=== PATIENT | male | born 1940 | race Caucasian/White ===

== ENCOUNTER 2018-09-04 09:06 | Emergency (ER) | payer MEDICARE, BC ==
[2018-09-04 09:21] VITALS: TEMP 98.5
--- NOTE | 2018-09-04 10:16 | ED ---
General Adult HPI - General Chief complaint: Recheck/Abnormal Lab/Rx Stated complaint: High blood pressure Time Seen by Provider: 09/04/18 09:20 Source: patient, RN notes reviewed Mode of arrival: ambulatory Limitations: no limitations - History of Present Illness Initial comments: This a 78-year-old male who presents emergency Department complaining of his blood pressure being elevated times one week. Patient states his blood pressure was elevated and has been for the last week. Patient states he is somewhat anxious about this. Patient states he has also had some very slight headaches that are intermittent. Patient thinks her so she was high blood pressure. Patient denies any chest pain patient denies shortness of breath or difficulty breathing. Patient denies any recent fever chills or cough. Patient denies any calf pain or leg swelling. Patient denies any abdominal pain patient denies nausea vomiting diarrhea. Patient denies any near syncopal episodes or any syncopal episodes. Patient states currently he feels pretty good but has a very very slight headache patient denies any blurred vision. - Related Data Home Medications Medication Instructions Recorded Confirmed Aspirin EC [Ecotrin Low Dose] 81 mg PO DAILY 09/04/18 09/04/18 Glucosamine/Chondr Solorzano A Sod [Osteo 1 tab PO DAILY 09/04/18 09/04/18 Bi-Flex Caplet] Metoprolol Tartrate [Lopressor] 50 mg PO HS 09/04/18 09/04/18 Previous Rx's Medication Instructions Recorded Metoprolol Tartrate [Lopressor] 50 mg PO BID #20 tab 09/04/18 Allergies Allergy/AdvReac Type Severity Reaction Status Date / Time No Known Allergies Allergy Verified 09/04/18 09:46 Review of Systems ROS Statement: Those systems with pertinent positive or pertinent negative responses have been documented in the HPI. ROS Other: All systems not noted in ROS Statement are negative. Past Medical History Past Medical History: Hypertension History of Any Multi-Drug Resistant Organisms: None Reported Past Surgical History: Appendectomy, Hernia Repair, Joint Replacement Additional Past Surgical History / Comment(s): foot Past Psychological History: No Psychological Hx Reported Smoking Status: Never smoker Past Alcohol Use History: Rare Past Drug Use History: None Reported General Exam - General Exam Comments Initial Comments: GENERAL: Patient is well-developed and well-nourished. Patient is nontoxic and well- hydrated and is in no acute distress but mildly anxious. ENT: Neck is soft and supple. No significant lymphadenopathy is noted. Oropharynx is clear. Moist mucous membranes. Neck has full range of motion without eliciting any pain. EYES: The sclera were anicteric and conjunctiva were pink and moist. Extraocular movements were intact and pupils were equal round and reactive to light. Eyelids were unremarkable. PULMONARY: Unlabored respirations. Good breath sounds bilaterally. No audible rales rhonchi or wheezing was noted. CARDIOVASCULAR: There is a regular rate and rhythm without any murmurs gallops or rubs. ABDOMEN: Soft and nontender with normal bowel sounds. No palpable organomegaly was noted. There is no palpable pulsatile mass. SKIN: Skin is clear with no lesions or rashes and otherwise unremarkable. NEUROLOGIC: Patient is alert and oriented x3. Cranial nerves II through XII are grossly intact. Motor and sensory are also intact. Normal speech, volume and content. Symmetrical smile. MUSCULOSKELETAL: Normal extremities with adequate strength and full range of motion. No lower extremity swelling or edema. No calf tenderness. LYMPHATICS: No significant lymphadenopathy is noted PSYCHIATRIC: Normal psychiatric evaluation. Limitations: no limitations Course Vital Signs 09/04/18 09/04/18 09/04/18 09:18 10:00 10:30 Temperature 98.5 F Pulse Rate 67 64 64 Respiratory 16 16 18 Rate Blood Pressure 178/111 151/107 127/87 O2 Sat by Pulse 98 95 97 Oximetry 09/04/18 11:00 Temperature Pulse Rate 59 L Respiratory 18 Rate Blood Pressure 148/86 O2 Sat by Pulse 97 Oximetry Medical Decision Making - Medical Decision Making EKG shows normal sinus rhythm at 60 bpm [place] interval 280 QRS is 94 QT interval 414 QTC is 420. Patient's EKG shows no ST segment elevation or depression or T- wave abdomen is noted. - Lab Data Result diagrams: 09/04/18 10:30 09/04/18 10:30 Lab Results 09/04/18 09/04/18 09/04/18 Range/Units 10:30 10:30 10:30 WBC 7.3 (3.8-10.6) k/uL RBC 4.79 (4.30-5.90) m/uL Hgb 13.9 (13.0-17.5) gm/dL Hct 41.5 (39.0-53.0) % MCV 86.6 (80.0-100.0) fL MCH 29.0 (25.0-35.0) pg MCHC 33.5 (31.0-37.0) g/dL RDW 13.4 (11.5-15.5) % Plt Count 298 (150-450) k/uL Neutrophils % 81 % Lymphocytes % 13 % Monocytes % 5 % Eosinophils % 1 % Basophils % 0 % Neutrophils # 5.9 (1.3-7.7) k/uL Lymphocytes # 0.9 L (1.0-4.8) k/uL Monocytes # 0.4 (0-1.0) k/uL Eosinophils # 0.0 (0-0.7) k/uL Basophils # 0.0 (0-0.2) k/uL PT (9.0-12.0) sec INR (<1.2) APTT (22.0-30.0) sec Sodium 141 (137-145) mmol/L Potassium 4.6 (3.5-5.1) mmol/L Chloride 108 H (98-107) mmol/L Carbon Dioxide 26 (22-30) mmol/L Anion Gap 7 mmol/L BUN 20 (9-20) mg/dL Creatinine 0.90 (0.66-1.25) mg/dL Est GFR (CKD-EPI)AfAm >90 (>60 ml/min/1.73 sqM) Est GFR (CKD-EPI)NonAf 81 (>60 ml/min/1.73 sqM) Glucose 110 H (74-99) mg/dL Calcium 9.4 (8.4-10.2) mg/dL Magnesium 2.1 (1.6-2.3) mg/dL Total Bilirubin 0.5 (0.2-1.3) mg/dL AST 21 (17-59) U/L ALT 26 (21-72) U/L Alkaline Phosphatase 83 (38-126) U/L Total Creatine Kinase 134 (55-170) U/L CK-MB (CK-2) 1.7 (0.0-2.4) ng/mL CK-MB (CK-2) Rel Index 1.3 Troponin I <0.012 (0.000-0.034) ng/mL Total Protein 6.5 (6.3-8.2) g/dL Albumin 3.8 (3.5-5.0) g/dL 09/04/18 Range/Units 10:30 WBC (3.8-10.6) k/uL RBC (4.30-5.90) m/uL Hgb (13.0-17.5) gm/dL Hct (39.0-53.0) % MCV (80.0-100.0) fL MCH (25.0-35.0) pg MCHC (31.0-37.0) g/dL RDW (11.5-15.5) % Plt Count (150-450) k/uL Neutrophils % % Lymphocytes % % Monocytes % % Eosinophils % % Basophils % % Neutrophils # (1.3-7.7) k/uL Lymphocytes # (1.0-4.8) k/uL Monocytes # (0-1.0) k/uL Eosinophils # (0-0.7) k/uL Basophils # (0-0.2) k/uL PT 10.2 (9.0-12.0) sec INR 0.9 (<1.2) APTT 24.8 (22.0-30.0) sec Sodium (137-145) mmol/L Potassium (3.5-5.1) mmol/L Chloride (98-107) mmol/L Carbon Dioxide (22-30) mmol/L Anion Gap mmol/L BUN (9-20) mg/dL Creatinine (0.66-1.25) mg/dL Est GFR (CKD-EPI)AfAm (>60 ml/min/1.73 sqM) Est GFR (CKD-EPI)NonAf (>60 ml/min/1.73 sqM) Glucose (74-99) mg/dL Calcium (8.4-10.2) mg/dL Magnesium (1.6-2.3) mg/dL Total Bilirubin (0.2-1.3) mg/dL AST (17-59) U/L ALT (21-72) U/L Alkaline Phosphatase (38-126) U/L Total Creatine Kinase (55-170) U/L CK-MB (CK-2) (0.0-2.4) ng/mL CK-MB (CK-2) Rel Index Troponin I (0.000-0.034) ng/mL Total Protein (6.3-8.2) g/dL Albumin (3.5-5.0) g/dL Disposition Clinical Impression: Hypertension Disposition: HOME SELF-CARE Condition: Good Instructions: Hypertension in the Older Adult (ED) Prescriptions: Metoprolol Tartrate [Lopressor] 50 mg PO BID #20 tab Is patient prescribed a controlled substance at d/c from ED?: No Referrals: Lou Cabrera DO [Primary Care Provider] - 1-2 days Time of Disposition: 11:56
[2018-09-04 10:51] LABS: Basophils % (A) 0 %; Eosinophils % (A) 1 %; HCT 41.5 % (39.0-53.0); HGB 13.9 gm/dL (13.0-17.5); Lymphocytes # (A) 0.9 k/uL (1.0-4.8); Lymphocytes % (A) 13 %; MCHC 33.5 g/dL (31.0-37.0); MCV 86.6 fL (80.0-100.0); Mean Platelet Volume 6.7; Monocytes # (A) 0.4 k/uL (0-1.0); Monocytes % (A) 5 %; Neutrophils # (A) 5.9 k/uL (1.3-7.7); Neutrophils % (A) 81 %; Platelet Count 298 k/uL (150-450); RBC 4.79 m/uL (4.30-5.90); RDW 13.4 % (11.5-15.5); WBC 7.3 k/uL (3.8-10.6)
--- NOTE | 2018-09-04 10:59 | XR ---
EXAMINATION TYPE: XR chest 2V DATE OF EXAM: 09/04/2018 COMPARISON: NONE HISTORY: Hypertension for one week. Chest pain. TECHNIQUE: Frontal and lateral views of the chest are obtained. FINDINGS: There is suspected chronic parenchymal change without worrisome focal air space opacity, p leural effusion, or pneumothorax seen bilaterally. The cardiac silhouette size is within normal limi ts. There is ectatic possible aneurysmal thoracic aorta. This could be better evaluated with CT. Spin e is straightened on lateral view with some multilevel spurring and disc space narrowing. IMPRESSION: No suspicious acute pulmonary process.
[2018-09-04 11:01] LABS: INR 0.9 (<1.2); Partial Thromboplastin Time 24.8 sec (22.0-30.0); Prothrombin Time 10.2 sec (9.0-12.0)
[2018-09-04 11:04] LABS: ALT 26 U/L (21-72); AST 21 U/L (17-59); Albumin 3.8 g/dL (3.5-5.0); Alkaline Phosphatase 83 U/L (38-126); Anion Gap 7 mmol/L; Blood Urea Nitrogen 20 mg/dL (9-20); Calcium 9.4 mg/dL (8.4-10.2); Carbon Dioxide 26 mmol/L (22-30); Chloride 108 mmol/L (98-107); Glucose 110 mg/dL (74-99); Magnesium 2.1 mg/dL (1.6-2.3); Potassium 4.6 mmol/L (3.5-5.1); Sodium 141 mmol/L (137-145); Total Bilirubin 0.5 mg/dL (0.2-1.3); Total Protein 6.5 g/dL (6.3-8.2)
[2018-09-04 11:15] VITALS: RESP 18
[2018-09-04 11:22] LABS: Creatine Kinase 134 U/L (55-170)
[2018-09-04 11:33] LABS: Creatine Kinase MB 1.7 ng/mL (0.0-2.4); Troponin I <0.012 ng/mL (0.000-0.034)
[2018-09-04] MEDS ORDERED: LABETALOL SYRINGE 5 MG/ML IVP STA (11:53)
[2018-09-04 13:22] VITALS: BP 136/90
[2018-09-04 13:32] VITALS: PULSE 66
== END 2018-09-04 13:42 | disposition home or self-care (01) ==
LOC: EC 09:06
DX: I10 Essential (primary) hypertension (principal); R51 Headache; Z79.82 Long term (current) use of aspirin; Z79.899 Other long term (current) drug therapy
CPT/HCPCS: 36415; 71046; 80053; 82550; 82553; 83735; 84484; 85025; 85610; 85730; 93005; 96374; 99284

== ENCOUNTER 2018-09-11 09:55 | Emergency (ER) | payer MEDICARE, BC ==
--- NOTE | 2018-09-11 11:09 | ED ---
General Adult HPI - General Chief complaint: Arrhythmia/Palpitations Stated complaint: High BP, Dizzy Time Seen by Provider: 09/11/18 09:58 Source: patient, family, RN notes reviewed Mode of arrival: ambulatory Limitations: no limitations - History of Present Illness Initial comments: Patient is a pleasant 78-year-old male presenting to the emergency department with concerns for palpitations and hypertension. Symptoms have been occurring over the past couple of weeks. Patient was in the emergency department over 1 week ago and did follow-up with his regular doctor. Patient states he did have increase of his metoprolol from 50 daily now to twice a day. Patient also started on lisinopril 10 mg. Patient did have some palpitations through the night. Patient checked his blood pressure prior to taking his medication this morning and was approximately 197/105. Patient has been somewhat lightheaded. No chest pain. No isolated area of weakness. No confusion. questions if anxiety could be causing his symptoms. - Related Data Home Medications Medication Instructions Recorded Confirmed Aspirin EC [Ecotrin Low Dose] 81 mg PO DAILY 09/04/18 09/11/18 Glucosamine/Chondr Solorzano A Sod [Osteo 1 tab PO DAILY 09/04/18 09/11/18 Bi-Flex Caplet] Lisinopril [Zestril] 10 mg PO DAILY 09/11/18 09/11/18 Previous Rx's Medication Instructions Recorded Metoprolol Tartrate [Lopressor] 50 mg PO BID #20 tab 09/04/18 Allergies Allergy/AdvReac Type Severity Reaction Status Date / Time No Known Allergies Allergy Verified 09/11/18 11:33 Review of Systems ROS Statement: Those systems with pertinent positive or pertinent negative responses have been documented in the HPI. ROS Other: All systems not noted in ROS Statement are negative. Constitutional: Denies: fever Eyes: Denies: eye pain ENT: Denies: ear pain Respiratory: Denies: cough Cardiovascular: Reports: palpitations. Denies: chest pain Endocrine: Reports: fatigue Gastrointestinal: Denies: abdominal pain Genitourinary: Denies: dysuria Musculoskeletal: Denies: back pain Skin: Denies: rash Neurological: Denies: headache Past Medical History Past Medical History: Hypertension History of Any Multi-Drug Resistant Organisms: None Reported Past Surgical History: Appendectomy, Hernia Repair, Joint Replacement Additional Past Surgical History / Comment(s): foot Past Psychological History: No Psychological Hx Reported Smoking Status: Never smoker Past Alcohol Use History: Rare Past Drug Use History: None Reported General Exam Limitations: no limitations General appearance: alert, in no apparent distress Head exam: Present: atraumatic Eye exam: Present: normal appearance, PERRL, EOMI ENT exam: Present: normal oropharynx Neck exam: Present: normal inspection Respiratory exam: Present: normal lung sounds bilaterally Cardiovascular Exam: Present: regular rate, normal rhythm Expanded Peripheral pulses: 2+: Radial (R), Radial (L), Posterior Tibialis (R), Posterior Tibialis (L) GI/Abdominal exam: Present: soft. Absent: distended, tenderness Extremities exam: Present: normal inspection. Absent: pedal edema, calf tenderness Neurological exam: Present: alert, CN II-XII intact. Absent: motor sensory deficit Expanded Neurological exam: Present: protecting the airway Speech: Present: fluid speech Motor strength exam: RUE: 5, LUE: 5, RLE: 5, LLE: 5 Eye Response: (4) open spontaneously Motor Response: (6) obeys commands Verbal Response: (5) oriented Psychiatric exam: Present: normal affect, normal mood Skin exam: Present: normal color Course Vital Signs 09/11/18 09/11/18 09/11/18 09:57 10:30 11:00 Temperature 97.7 F Pulse Rate 60 55 L 52 L Respiratory 20 18 18 Rate Blood Pressure 202/85 172/106 155/93 O2 Sat by Pulse 98 97 99 Oximetry EKG Findings - EKG Comments: EKG Findings:: Sinus bradycardia 57. CA 188. QRS 92. QT 404. QTC 393. Normal axis. Normal QRS. No acute ST change. Medical Decision Making - Medical Decision Making Patient reevaluated and resting comfortably in bed. Patient symptom free at this time. Blood pressure has improved to 146/89. Patient and family updated on results and plan. Patient states it is time to take his lisinopril and plans on taking his own medication. - Lab Data Result diagrams: 09/11/18 11:10 09/11/18 11:10 Lab Results 09/11/18 09/11/18 09/11/18 Range/Units 11:10 11:10 11:10 WBC 7.7 (3.8-10.6) k/uL RBC 4.75 (4.30-5.90) m/uL Hgb 13.1 (13.0-17.5) gm/dL Hct 41.4 (39.0-53.0) % MCV 87.2 (80.0-100.0) fL MCH 27.6 (25.0-35.0) pg MCHC 31.7 (31.0-37.0) g/dL RDW 13.3 (11.5-15.5) % Plt Count 370 (150-450) k/uL Neutrophils % 77 % Lymphocytes % 14 % Monocytes % 7 % Eosinophils % 2 % Basophils % 0 % Neutrophils # 5.9 (1.3-7.7) k/uL Lymphocytes # 1.1 (1.0-4.8) k/uL Monocytes # 0.5 (0-1.0) k/uL Eosinophils # 0.1 (0-0.7) k/uL Basophils # 0.0 (0-0.2) k/uL PT (9.0-12.0) sec INR (<1.2) APTT (22.0-30.0) sec Sodium 140 (137-145) mmol/L Potassium 5.5 H (3.5-5.1) mmol/L Chloride 107 (98-107) mmol/L Carbon Dioxide 27 (22-30) mmol/L Anion Gap 6 mmol/L BUN 18 (9-20) mg/dL Creatinine 0.88 (0.66-1.25) mg/dL Est GFR (CKD-EPI)AfAm >90 (>60 ml/min/1.73 sqM) Est GFR (CKD-EPI)NonAf 82 (>60 ml/min/1.73 sqM) Glucose 108 H (74-99) mg/dL Calcium 9.3 (8.4-10.2) mg/dL Magnesium 2.2 (1.6-2.3) mg/dL Total Bilirubin 1.0 (0.2-1.3) mg/dL AST 34 (17-59) U/L ALT 19 L (21-72) U/L Alkaline Phosphatase 61 (38-126) U/L Total Creatine Kinase 81 (55-170) U/L CK-MB (CK-2) 0.9 (0.0-2.4) ng/mL CK-MB (CK-2) Rel Index 1.1 Troponin I <0.012 (0.000-0.034) ng/mL Total Protein 6.8 (6.3-8.2) g/dL Albumin 3.8 (3.5-5.0) g/dL 09/11/18 Range/Units 11:10 WBC (3.8-10.6) k/uL RBC (4.30-5.90) m/uL Hgb (13.0-17.5) gm/dL Hct (39.0-53.0) % MCV (80.0-100.0) fL MCH (25.0-35.0) pg MCHC (31.0-37.0) g/dL RDW (11.5-15.5) % Plt Count (150-450) k/uL Neutrophils % % Lymphocytes % % Monocytes % % Eosinophils % % Basophils % % Neutrophils # (1.3-7.7) k/uL Lymphocytes # (1.0-4.8) k/uL Monocytes # (0-1.0) k/uL Eosinophils # (0-0.7) k/uL Basophils # (0-0.2) k/uL PT 10.3 (9.0-12.0) sec INR 1.0 (<1.2) APTT 24.6 (22.0-30.0) sec Sodium (137-145) mmol/L Potassium (3.5-5.1) mmol/L Chloride (98-107) mmol/L Carbon Dioxide (22-30) mmol/L Anion Gap mmol/L BUN (9-20) mg/dL Creatinine (0.66-1.25) mg/dL Est GFR (CKD-EPI)AfAm (>60 ml/min/1.73 sqM) Est GFR (CKD-EPI)NonAf (>60 ml/min/1.73 sqM) Glucose (74-99) mg/dL Calcium (8.4-10.2) mg/dL Magnesium (1.6-2.3) mg/dL Total Bilirubin (0.2-1.3) mg/dL AST (17-59) U/L ALT (21-72) U/L Alkaline Phosphatase (38-126) U/L Total Creatine Kinase (55-170) U/L CK-MB (CK-2) (0.0-2.4) ng/mL CK-MB (CK-2) Rel Index Troponin I (0.000-0.034) ng/mL Total Protein (6.3-8.2) g/dL Albumin (3.5-5.0) g/dL - Radiology Data Radiology results: image reviewed (Chest x-ray shows no acute process) Disposition Clinical Impression: Hypertension Disposition: HOME SELF-CARE Condition: Stable Instructions: Heart Palpitations (ED), Hypertension (ED) Additional Instructions: Please follow-up with primary care physician in the next day or 2 for recheck. Also consider cardiology evaluation. Have blood pressure remains high, you may take one extra of your 10 mg lisinopril daily as needed. Return for uncontrolled blood pressure, chest pain or difficulty in breathing, weakness or confusion, worsening or changing symptoms or other concerns Is patient prescribed a controlled substance at d/c from ED?: No Referrals: Lou Cabrera DO [Primary Care Provider] - 1-2 days Elmer Boone MD [STAFF PHYSICIAN] - 1-2 days Time of Disposition: 12:50
[2018-09-11 11:11] VITALS: PULSE 52; RESP 18
--- NOTE | 2018-09-11 11:30 | XR ---
EXAMINATION TYPE: XR chest 2V DATE OF EXAM: 09/11/2018 COMPARISON: Chest x-ray from one week ago. HISTORY: Hypertension and dysrhythmia. TECHNIQUE: Frontal and lateral views of the chest are obtained. FINDINGS: There is chronic parenchymal change without suspicious focal air space opacity, pleural ef fusion, or pneumothorax seen. The cardiac silhouette size is within normal limits. 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 Spine is straightened on lateral image with disc space na rrowing at roughly T9-T10 level . IMPRESSION: Chronic chronic changes without acute pulmonary process. No significant change from prio r.
[2018-09-11 11:58] LABS: Basophils % (A) 0 %; Eosinophils # (A) 0.1 k/uL (0-0.7); Eosinophils % (A) 2 %; HCT 41.4 % (39.0-53.0); HGB 13.1 gm/dL (13.0-17.5); Lymphocytes # (A) 1.1 k/uL (1.0-4.8); Lymphocytes % (A) 14 %; MCH 27.6 pg (25.0-35.0); MCHC 31.7 g/dL (31.0-37.0); MCV 87.2 fL (80.0-100.0); Mean Platelet Volume 6.7; Monocytes # (A) 0.5 k/uL (0-1.0); Monocytes % (A) 7 %; Neutrophils # (A) 5.9 k/uL (1.3-7.7); Neutrophils % (A) 77 %; Platelet Count 370 k/uL (150-450); RBC 4.75 m/uL (4.30-5.90); RDW 13.3 % (11.5-15.5); WBC 7.7 k/uL (3.8-10.6)
[2018-09-11 12:17] LABS: Creatine Kinase 81 U/L (55-170)
[2018-09-11 12:21] LABS: Glucose 108 mg/dL (74-99); Sodium 140 mmol/L (137-145)
[2018-09-11 12:22] LABS: ALT 19 U/L (21-72); AST 34 U/L (17-59); Albumin 3.8 g/dL (3.5-5.0); Alkaline Phosphatase 61 U/L (38-126); Anion Gap 6 mmol/L; Blood Urea Nitrogen 18 mg/dL (9-20); Calcium 9.3 mg/dL (8.4-10.2); Carbon Dioxide 27 mmol/L (22-30); Chloride 107 mmol/L (98-107); Magnesium 2.2 mg/dL (1.6-2.3); Total Protein 6.8 g/dL (6.3-8.2)
[2018-09-11 12:24] LABS: Partial Thromboplastin Time 24.6 sec (22.0-30.0); Prothrombin Time 10.3 sec (9.0-12.0)
[2018-09-11 12:27] LABS: Potassium 5.5 mmol/L (3.5-5.1)
[2018-09-11 12:32] LABS: Creatine Kinase MB 0.9 ng/mL (0.0-2.4); Troponin I <0.012 ng/mL (0.000-0.034)
[2018-09-11 13:13] VITALS: BP 146/89
[2018-09-11 13:17] VITALS: TEMP 98.5
== END 2018-09-11 13:17 | disposition home or self-care (01) ==
LOC: EC 09:55
DX: I10 Essential (primary) hypertension (principal); R00.2 Palpitations; R42 Dizziness and giddiness; Z96.89 Presence of other specified functional implants; Z79.82 Long term (current) use of aspirin; Z79.899 Other long term (current) drug therapy
CPT/HCPCS: 36415; 71046; 80053; 82550; 82553; 83735; 84484; 85025; 85610; 85730; 93005; 99285

== ENCOUNTER → 2018-09-27 | Outpatient (CLI) | payer MEDICARE, BC ==
[2018-09-27 10:22] LABS: Basophils % (A) 0 %; Eosinophils # (A) 0.1 k/uL (0-0.7); Eosinophils % (A) 1 %; HGB 13.9 gm/dL (13.0-17.5); Lymphocytes # (A) 1.5 k/uL (1.0-4.8); Lymphocytes % (A) 21 %; MCH 28.6 pg (25.0-35.0); MCHC 32.4 g/dL (31.0-37.0); MCV 88.1 fL (80.0-100.0); Mean Platelet Volume 6.5; Monocytes # (A) 0.4 k/uL (0-1.0); Monocytes % (A) 5 %; Neutrophils # (A) 5.1 k/uL (1.3-7.7); Neutrophils % (A) 72 %; Platelet Count 345 k/uL (150-450); RBC 4.88 m/uL (4.30-5.90); RDW 13.5 % (11.5-15.5); WBC 7.1 k/uL (3.8-10.6)
[2018-09-27 13:11] LABS: Erythrocyte Sedimentation Rate 9 mm/hr (0-15)
[2018-09-27 20:06] LABS: Hemoglobin A1C 5.9 % (4.0-6.0)
[2018-09-27 20:21] LABS: ALT 15 U/L (10-49); AST 15 U/L (14-35); Albumin/Globulin Ratio 2.53 (1.20-2.10); Alkaline Phosphatase 95 U/L (41-126); C Reactive Protein <0.4 mg/dL (0.0-0.8); Calcium 9.3 mg/dL (8.7-10.3); Carbon Dioxide 24.4 mmol/L (21.6-31.8); Chloride 103 mmol/L (96-109); Cholesterol 178 mg/dL (0-200); Creatine Kinase 93 U/L (35-257); Globulin 1.7 g/dL (1.6-3.3); Glucose 119 mg/dL (70-110); LDL Cholesterol,Calculated 108.6 mg/dL (0.0-131.0); Potassium 4.8 mmol/L (3.5-5.5); Sodium 140 mmol/L (135-145); Total Bilirubin 0.6 mg/dL (0.3-1.2)
== END | disposition home or self-care (01) ==
LOC: LABWHC1 09:15
PROVIDERS: ATTEND Internal Medicine
DX: E78.5 Hyperlipidemia, unspecified (principal); I10 Essential (primary) hypertension; E03.9 Hypothyroidism, unspecified; E55.9 Vitamin D deficiency, unspecified; N40.0 Benign prostatic hyperplasia without lower urinary tract symptoms
CPT/HCPCS: 36415; 80053; 80061; 82306; 82550; 83036; 84153; 84443; 85025; 85652; 86140

== ENCOUNTER → 2018-09-27 | Outpatient (CLI) | payer MEDICARE, BC | END | disposition home or self-care (01) | LOC: LABWHC1 19:15 | PROVIDERS: ATTEND Internal Medicine | DX: N40.0 Benign prostatic hyperplasia without lower urinary tract symptoms (principal); E78.5 Hyperlipidemia, unspecified; I10 Essential (primary) hypertension; E03.9 Hypothyroidism, unspecified; E55.9 Vitamin D deficiency, unspecified | CPT/HCPCS: 36415; 82272 ==

== ENCOUNTER → 2018-10-06 | Outpatient (CLI) | payer MEDICARE, BC ==
--- NOTE | 2018-10-06 16:24 | CT ---
EXAMINATION TYPE: CT brain w con DATE OF EXAM: 10/06/2018 COMPARISON: None HISTORY: Pt has been having issues with dizziness and abnormal reflexes after being treated for HTN.c CT DLP: 1047.1 mGycm Automated exposure control for dose reduction was used. CONTRAST: CT scan of the head is performed with IV Contrast, patient injected with 100 mL of Isovue 300. FINDINGS: There is no abnormal enhancing mass or midline shift identified. The ventricles and sulci are within normal limits in size. The globes are intact and the visualized sinuses are clear. IMPRESSION: Negative contrast enhanced head CT exam.
== END | disposition home or self-care (01) ==
LOC: RADCTMAIN 15:09
PROVIDERS: ATTEND Internal Medicine
DX: R42 Dizziness and giddiness (principal); R26.81 Unsteadiness on feet
CPT/HCPCS: 70460; Q9967

== ENCOUNTER → 2018-10-10 | Outpatient (CLI) | payer MEDICARE, BC ==
--- NOTE | 2018-10-10 14:30 | US ---
EXAMINATION TYPE: US kidneys/renal and bladder DATE OF EXAM: 10/10/2018 COMPARISON: NONE CLINICAL HISTORY: I12.9 Chronic kidney disease stage 1. EXAM MEASUREMENTS: Right Kidney: 11.6 x 3.8 x 5.3 cm Left Kidney: 11.0 x 5.2 x 4.7 cm Right Kidney: No hydronephrosis, several echogenic foci noted, small stones vs calcified arteries lar gest measuring 2.8 x 2.1 x 0.2cm Left Kidney: No hydronephrosis or masses seen, lobular contour, superior pole obscured by overlying b owel gas Bladder: wnl There is no evidence for hydronephrosis at this point in time. No nephrolithiasis is seen. No jada s are identified. The urinary bladder is anechoic. Bilateral ureteral jets are not seen. IMPRESSION: No hydronephrosis is evident bilaterally. Cannot exclude nonobstructing right-sided renal calculi, co rrelate clinically.
== END | disposition home or self-care (01) ==
LOC: RADUSWWP 10-03 15:30
PROVIDERS: ATTEND Internal Medicine
DX: I12.9 Hypertensive chronic kidney disease with stage 1 through stage 4 chronic kidney disease, or unspecified chronic kidney disease (principal); N18.2 Chronic kidney disease, stage 2 (mild)
CPT/HCPCS: 76770

== ENCOUNTER → 2018-10-13 | Outpatient (CLI) | payer MEDICARE, BC ==
--- NOTE | 2018-10-15 15:04 | CT ---
EXAMINATION TYPE: CT abdomen w con DATE OF EXAM: 10/13/2018 COMPARISON: NONE HISTORY: 78-year-old male c/o dizziness, weakness in lower extremities, pain in LLQ/RLQ TECHNIQUE: Contiguous axial scanning of the abdomen and pelvis following administration of 100 ml Iso nichole 300 IV contrast. Delayed images through the kidneys and coronal/sagittal reconstructions perform ed. CT DLP: 887.80 mGycm Automated exposure control for dose reduction was used. FINDINGS: Heart normal size without pericardial effusion. Small hiatal hernia. Lung bases clear without pleural effusion. 1 cm or smaller hypodense lesions numbering approximately 3 in the liver are too small for accurate C T characterization, likely cysts. Portal venous system is patent. No biliary ductal dilatation. The gallbladder, adrenal glands, left kidney with extrarenal pelvis, spleen, and pancreas appear with in normal limits. Punctate 3 mm nonobstructive right upper pole renal calculus. No dilated small bowel, free fluid, or free air. No mesenteric or retroperitoneal lymphadenopathy. Scattered mild stool burden. No pericolonic inflammatory change seen within the visualized upper to m id abdomen. The pelvis is not imaged and is not evaluated. Bones: Degenerative changes of the left SI joint. Moderate degenerative disc disease L3-L4 and L4-L5 and more advanced at L5-S1. Hypertrophic facet arthropathy mid to lower lumbar spine with moderate to severe neuroforaminal stenoses at both L4-L5 and L5-S1. Degenerative grade 1 anterolisthesis at T11-T12. IMPRESSION: 1. NOTE THAT THE PELVIS IS NOT INCLUDED ON THIS EXAM. THIS EXCLUDES SOME OF THE LOWER MOST ABDOMEN. 2. PUNCTATE 3 MM NONOBSTRUCTIVE RIGHT RENAL CALCULUS. 3. NO ACUTE INFLAMMATORY PROCESS IDENTIFIED IN THE VISUALIZED ABDOMEN. 4. SMALL HIATAL HERNIA. 5. DEGENERATIVE CHANGES THROUGHOUT THE SPINE.
== END | disposition home or self-care (01) ==
LOC: RADCTMAIN 15:21
PROVIDERS: ATTEND Internal Medicine
DX: K44.9 Diaphragmatic hernia without obstruction or gangrene (principal); N20.0 Calculus of kidney
CPT/HCPCS: 82565; 84520; 74160; 36415; Q9967

== ENCOUNTER → 2019-02-27 | Outpatient (CLI) | payer MEDICARE, BC ==
[2019-02-27 12:46] LABS: Basophils % (A) 0 %; Eosinophils # (A) 0.2 k/uL (0-0.7); Eosinophils % (A) 2 %; HGB 12.2 gm/dL (13.0-17.5); Lymphocytes # (A) 1.4 k/uL (1.0-4.8); Lymphocytes % (A) 16 %; MCHC 32.2 g/dL (31.0-37.0); Mean Platelet Volume 6.8; Monocytes # (A) 0.5 k/uL (0-1.0); Monocytes % (A) 6 %; Neutrophils # (A) 6.3 k/uL (1.3-7.7); Neutrophils % (A) 75 %; Platelet Count 401 k/uL (150-450); RBC 4.36 m/uL (4.30-5.90); RDW 13.8 % (11.5-15.5); WBC 8.4 k/uL (3.8-10.6)
[2019-02-27 13:00] LABS: INR 0.9 (<1.2); Prothrombin Time 10.2 sec (9.0-12.0)
[2019-02-27 13:18] LABS: Potassium 5.3 mmol/L (3.5-5.1)
== END | disposition home or self-care (01) ==
LOC: LABPAT 10:21
PROVIDERS: ATTEND Internal Medicine
DX: Z47.89 Encounter for other orthopedic aftercare (principal); Z96.642 Presence of left artificial hip joint
CPT/HCPCS: 36415; 80051; 85025; 85610; 87070

== ENCOUNTER → 2019-02-27 | Outpatient (CLI) | payer MEDICARE, BC | END | disposition home or self-care (01) | LOC: LABPAT 12:21 | PROVIDERS: ATTEND Orthopaedic Surgery | DX: Z53.9 Procedure and treatment not carried out, unspecified reason (principal) ==

== ENCOUNTER → 2019-03-05 | Outpatient (CLI) | payer MEDICARE, BC | END | disposition home or self-care (01) | LOC: LABPAT 13:25 | PROVIDERS: ATTEND Orthopaedic Surgery | DX: Z01.812 Encounter for preprocedural laboratory examination (principal); M16.12 Unilateral primary osteoarthritis, left hip | CPT/HCPCS: 36415; 86850; 86900; 86901 ==

== ENCOUNTER → 2019-09-28 | Outpatient (CLI) | payer MEDICARE, BC ==
[2019-09-28 11:12] LABS: Basophils # (A) 0.1 k/uL (0-0.2); Basophils % (A) 2 %; Eosinophils # (A) 0.1 k/uL (0-0.7); Eosinophils % (A) 1 %; HCT 38.7 % (39.0-53.0); HGB 12.9 gm/dL (13.0-17.5); Lymphocytes # (A) 1.3 k/uL (1.0-4.8); Lymphocytes % (A) 19 %; MCH 29.2 pg (25.0-35.0); MCHC 33.3 g/dL (31.0-37.0); MCV 87.6 fL (80.0-100.0); Mean Platelet Volume 7.3; Monocytes # (A) 0.4 k/uL (0-1.0); Monocytes % (A) 7 %; Neutrophils # (A) 4.7 k/uL (1.3-7.7); Neutrophils % (A) 71 %; Platelet Count 331 k/uL (150-450); RBC 4.42 m/uL (4.30-5.90); RDW 13.7 % (11.5-15.5); WBC 6.7 k/uL (3.8-10.6)
[2019-09-28 11:51] LABS: Erythrocyte Sedimentation Rate 20 mm/hr (0-15)
[2019-09-28 18:47] LABS: Albumin 4.1 g/dL (3.80-4.90); Albumin/Globulin Ratio 2.16 (1.60-3.17); Anion Gap 5.2 mmol/L (4.00-12.00); C Reactive Protein 0.4 mg/dL (0.0-0.8); Calcium 9.4 mg/dL (8.7-10.3); Carbon Dioxide 29.8 mmol/L (21.6-31.8); Chol/HDL Ratio 4.76; Globulin 1.9 g/dL (1.6-3.3); LDL Cholesterol,Calculated 123.2 mg/dL (0.0-131.0); Non-African American GFR(CKD) 70.8 (60.0-200.0); Potassium 5.1 mmol/L (3.5-5.5); Total Bilirubin 0.4 mg/dL (0.2-1.2); VLDL Calculation 30.8 mg/dL (5.00-40.00)
== END | disposition home or self-care (01) ==
LOC: LABWHC1 09:52
PROVIDERS: ATTEND Internal Medicine
DX: D64.9 Anemia, unspecified (principal); I10 Essential (primary) hypertension; E87.8 Other disorders of electrolyte and fluid balance, not elsewhere classified; E78.5 Hyperlipidemia, unspecified; E03.9 Hypothyroidism, unspecified; E55.9 Vitamin D deficiency, unspecified; M10.9 Gout, unspecified; N40.0 Benign prostatic hyperplasia without lower urinary tract symptoms
CPT/HCPCS: 36415; 80053; 80061; 82306; 82550; 84153; 84443; 85025; 85652; 86140

== ENCOUNTER → 2020-04-30 | Outpatient (CLI) | payer MEDICARE, BC ==
[2020-04-30 16:44] LABS: Chol/HDL Ratio 5.97; LDL Cholesterol,Calculated 128.4 mg/dL (0.0-131.0); VLDL Calculation 35.6 mg/dL (5.00-40.00)
== END | disposition home or self-care (01) ==
LOC: LABWHC1 09:40
PROVIDERS: ATTEND Internal Medicine
DX: E78.5 Hyperlipidemia, unspecified (principal)
CPT/HCPCS: 36415; 80061

== ENCOUNTER → 2020-08-05 | Outpatient (CLI) | payer MEDICARE, BC ==
[2020-08-05 18:37] LABS: Chol/HDL Ratio 3.69; LDL Cholesterol,Calculated 73.2 mg/dL (0.0-131.0); VLDL Calculation 20.8 mg/dL (5.00-40.00)
== END | disposition home or self-care (01) ==
LOC: LABWHC1 10:18
PROVIDERS: ATTEND Internal Medicine
DX: E78.5 Hyperlipidemia, unspecified (principal); Z51.81 Encounter for therapeutic drug level monitoring
CPT/HCPCS: 36415; 80061; 82550; 84450; 84460

== ENCOUNTER → 2020-12-02 | Outpatient (CLI) | payer MEDICARE, BC ==
[2020-12-02 18:08] LABS: Basophils # (A) 0.04 X 10*3/uL (0.00-0.10); Basophils % (A) 0.6 %; Eosinophils # (A) 0.13 X 10*3/uL (0.04-0.35); Eosinophils % (A) 1.9 %; HCT 38.8 % (39.6-50.0); HGB 12.4 g/dL (13.0-17.0); Lymphocytes # (A) 1.43 X 10*3/uL (0.90-5.00); Lymphocytes % (A) 21.3 %; MCH 28.8 pg (27.0-32.0); MCV 90.2 fL (80.0-97.0); Mean Platelet Volume 10.1 fL (9.5-12.2); Monocytes # (A) 0.56 X 10*3/uL (0.20-1.00); Monocytes % (A) 8.3 %; Neutrophils # (A) 4.53 X 10*3/uL (1.80-7.70); Neutrophils % (A) 67.6 %; Platelet Count 303 X 10*3/uL (140-440); RDW 13.2 % (11.5-14.5); WBC 6.71 X 10*3/uL (4.50-10.00)
[2020-12-02 19:58] LABS: Erythrocyte Sedimentation Rate 17 mm/Hr (0-20)
[2020-12-02 21:16] LABS: ALT 19 U/L (10-49); AST 18 U/L (14-35); African American GFR (CKD) 65.3 (60.0-200.0); Alkaline Phosphatase 113 U/L (41-126); BUN/Creat Ratio 16.67 Ratio (12.00-20.00); C Reactive Protein <0.4 mg/dL (0.0-0.8); Calcium 9.2 mg/dL (8.7-10.3); Carbon Dioxide 28.4 mmol/L (21.6-31.8); Chloride 107 mmol/L (96-109); Chol/HDL Ratio 3.52; Cholesterol 116 mg/dL (0-200); Creatine Kinase 118 U/L (35-257); Glucose 112 mg/dL (70-110); LDL Cholesterol,Calculated 63.2 mg/dL (0.0-131.0); Non-African American GFR(CKD) 56.4 (60.0-200.0); Potassium 4.9 mmol/L (3.5-5.5); Prostate Specific Antigen 1.9 ng/mL (0.0-6.5); Sodium 140 mmol/L (135-145); Total Bilirubin 0.4 mg/dL (0.3-1.2); Uric Acid 6.8 mg/dL (3.7-8.7)
== END | disposition home or self-care (01) ==
LOC: LABWHC1 09:13
PROVIDERS: ATTEND Internal Medicine
DX: E78.5 Hyperlipidemia, unspecified (principal); N40.0 Benign prostatic hyperplasia without lower urinary tract symptoms; M81.0 Age-related osteoporosis without current pathological fracture; I10 Essential (primary) hypertension
CPT/HCPCS: 36415; 80053; 80061; 82272; 82550; 84153; 84550; 85025; 85652; 86140

== ENCOUNTER → 2021-03-16 | Outpatient (CLI) | payer MEDICARE, BC ==
[2021-03-16 15:10] LABS: Basophils # (A) 0.03 X 10*3/uL (0.00-0.10); Basophils % (A) 0.4 %; Eosinophils # (A) 0.15 X 10*3/uL (0.04-0.35); Eosinophils % (A) 2.2 %; HCT 36.9 % (39.6-50.0); HGB 11.7 g/dL (13.0-17.0); Lymphocytes # (A) 1.83 X 10*3/uL (0.90-5.00); Lymphocytes % (A) 27.1 %; MCH 28.9 pg (27.0-32.0); MCHC 31.7 g/dL (32.0-37.0); MCV 91.1 fL (80.0-97.0); Mean Platelet Volume 9.9 fL (9.5-12.2); Monocytes # (A) 0.64 X 10*3/uL (0.20-1.00); Monocytes % (A) 9.5 %; Neutrophils # (A) 4.09 X 10*3/uL (1.80-7.70); Neutrophils % (A) 60.5 %; Platelet Count 313 X 10*3/uL (140-440); RBC 4.05 X 10*6/uL (4.40-5.60); RDW 13.2 % (11.5-14.5); WBC 6.76 X 10*3/uL (4.50-10.00)
[2021-03-16 15:32] LABS: % Iron Saturation 30.47 (15.00-50.00)
[2021-03-16 15:39] LABS: Ferritin 299.8 ng/mL (22.0-322.0)
== END | disposition home or self-care (01) ==
LOC: LABWHC1 07:58
PROVIDERS: ATTEND Internal Medicine
DX: D64.9 Anemia, unspecified (principal)
CPT/HCPCS: 36415; 82728; 83540; 83550; 85025

== ENCOUNTER → 2021-04-02 | Outpatient (CLI) | payer MEDICARE, BC ==
--- NOTE | 2021-04-02 15:20 | XR ---
EXAMINATION TYPE: XR cervical spine comp DATE OF EXAM: 04/02/2021 TECHNIQUE: Frontal, lateral, oblique, swimmers, and open mouth view of the cervical spine are obtaine d. HISTORY: M81.0 Osteoarthritis COMPARISON: None FINDINGS: The cervical spine is visualized in its entirety from C1 through the bottom of C7. There is straighte pao and mild reversal of the cervical lordosis. Minimal grade 1 anterolisthesis of C4 on C5. There i s C3-C7 disc space narrowing with marked anterior osteophytic spurring, worst at C3-C4 and C4-C5. Unc overtebral hypertrophy and facet arthropathy. Vertebral body heights are normal. No evidence of acute fracture or subluxation. There are varying degrees of multilevel bilateral neural foraminal bony enc roachment, involving most cervical levels. The pre-vertebral soft tissue appears within normal limits . The dens is within normal limits on the open mouth view. IMPRESSION: 1. No acute fracture or subluxation is seen in the cervical spine. 2. Significant degenerative changes as above.
== END | disposition home or self-care (01) ==
LOC: RADXRMAIN 13:47
PROVIDERS: ATTEND Internal Medicine
DX: M50.323 Other cervical disc degeneration at C6-C7 level (principal); M47.812 Spondylosis without myelopathy or radiculopathy, cervical region; M43.12 Spondylolisthesis, cervical region; M99.71 Connective tissue and disc stenosis of intervertebral foramina of cervical region; M43.6 Torticollis
CPT/HCPCS: 72050

== ENCOUNTER → 2021-12-10 | Outpatient (CLI) | payer MEDICARE, BC ==
[2021-12-10 15:02] LABS: Basophils # (A) 0.02 X 10*3/uL (0.00-0.10); Basophils % (A) 0.3 %; Eosinophils # (A) 0.12 X 10*3/uL (0.04-0.35); Eosinophils % (A) 1.7 %; HCT 39.3 % (39.6-50.0); HGB 12.3 g/dL (13.0-17.0); Immature Grans, Automated 0.4 %; Lymphocytes # (A) 1.47 X 10*3/uL (0.90-5.00); Lymphocytes % (A) 20.7 %; MCH 28.2 pg (27.0-32.0); MCHC 31.3 g/dL (32.0-37.0); MCV 90.1 fL (80.0-97.0); Mean Platelet Volume 9.7 fL (9.5-12.2); Monocytes % (A) 8.5 %; NRBC Per 100 WBC 0 /100 WBCS (0.0-0.0); Neutrophils # (A) 4.85 X 10*3/uL (1.80-7.70); Neutrophils % (A) 68.4 %; Platelet Count 312 X 10*3/uL (140-440); RBC 4.36 X 10*6/uL (4.40-5.60); RDW 13.1 % (11.5-14.5); WBC 7.09 X 10*3/uL (4.50-10.00)
[2021-12-10 15:14] LABS: ALT 14 U/L (10-49); AST 17 U/L (14-35); African American GFR (CKD) 64.9 (60.0-200.0); Albumin/Globulin Ratio 1.74 (1.60-3.17); Alkaline Phosphatase 114 U/L (41-126); BUN/Creat Ratio 21.33 Ratio (12.00-20.00); Blood Urea Nitrogen 25.6 mg/dL (9.0-27.0); C Reactive Protein <0.30 mg/dL (0.00-0.80); Calcium 9.4 mg/dL (8.7-10.3); Carbon Dioxide 23.3 mmol/L (20.0-27.5); Chloride 104 mmol/L (96-109); Chol/HDL Ratio 3.49 Ratio; Creatine Kinase 109 U/L (35-257); Globulin 2.3 g/dL (1.6-3.3); Glucose 111 mg/dL (70-110); LDL Cholesterol,Calculated 67.2 mg/dL (0.0-131.0); Potassium 5.1 mmol/L (3.5-5.5); Sodium 137 mmol/L (135-145); Total Protein 6.3 g/dL (6.2-8.2)
[2021-12-10 16:45] LABS: Erythrocyte Sedimentation Rate 11 mm/Hr (0-20)
== END | disposition home or self-care (01) ==
LOC: LABWHC1 08:34
PROVIDERS: ATTEND Internal Medicine
DX: Z00.00 Encounter for general adult medical examination without abnormal findings (principal); I10 Essential (primary) hypertension; D64.9 Anemia, unspecified; E78.5 Hyperlipidemia, unspecified; E03.9 Hypothyroidism, unspecified; E55.9 Vitamin D deficiency, unspecified; M81.0 Age-related osteoporosis without current pathological fracture
CPT/HCPCS: 36415; 80053; 80061; 82306; 82550; 84153; 84443; 85025; 85652; 86140

== ENCOUNTER → 2022-07-28 | Outpatient (CLI) | payer MEDICARE, BC ==
[2022-07-28 18:10] LABS: Basophils # (A) 0.03 X 10*3/uL (0.00-0.10); Basophils % (A) 0.3 %; Eosinophils # (A) 0.09 X 10*3/uL (0.04-0.35); Eosinophils % (A) 0.9 %; HCT 37.1 % (39.6-50.0); HGB 11.9 g/dL (13.0-17.0); Immature Grans, Automated 0.3 %; Lymphocytes % (A) 11.5 %; MCH 28.8 pg (27.0-32.0); MCHC 32.1 g/dL (32.0-37.0); MCV 89.8 fL (80.0-97.0); Mean Platelet Volume 9.3 fL (9.5-12.2); Monocytes # (A) 0.69 X 10*3/uL (0.20-1.00); Monocytes % (A) 7.2 %; NRBC Per 100 WBC 0 /100 WBCS (0.0-0.0); Neutrophils # (A) 7.62 X 10*3/uL (1.80-7.70); Neutrophils % (A) 79.8 %; Platelet Count 457 X 10*3/uL (140-440); RBC 4.13 X 10*6/uL (4.40-5.60); RDW 12.9 % (11.5-14.5); WBC 9.56 X 10*3/uL (4.50-10.00)
[2022-07-28 18:52] LABS: African American GFR (CKD) 72.4 (60.0-200.0); Anion Gap 8.8 mmol/L (10.00-18.00); BUN/Creat Ratio 17.61 Ratio (12.00-20.00); Blood Urea Nitrogen 19.2 mg/dL (9.0-27.0); Calcium 9.5 mg/dL (8.7-10.3); Carbon Dioxide 26.7 mmol/L (20.0-27.5); Non-African American GFR(CKD) 62.4 (60.0-200.0); Potassium 5.3 mmol/L (3.5-5.5)
== END | disposition home or self-care (01) ==
LOC: LABPAT 11:03
PROVIDERS: ATTEND Orthopaedic Surgery
DX: Z01.812 Encounter for preprocedural laboratory examination (principal); Z22.322 Carrier or suspected carrier of Methicillin resistant Staphylococcus aureus; M16.11 Unilateral primary osteoarthritis, right hip
CPT/HCPCS: 80048; 85025; 87070; 93005

== ENCOUNTER 2022-08-15 13:37 | Emergency (ER) | payer MEDICARE, BC ==
[2022-08-15 13:43] VITALS: RESP 18
[2022-08-15 14:18] LABS: Basophils % (A) 0 %; Eosinophils # (A) 0.1 k/uL (0-0.7); Eosinophils % (A) 1 %; HCT 34.5 % (39.0-53.0); HGB 11.5 gm/dL (13.0-17.5); Lymphocytes # (A) 0.7 k/uL (1.0-4.8); Lymphocytes % (A) 6 %; MCH 28.8 pg (25.0-35.0); MCHC 33.4 g/dL (31.0-37.0); MCV 86.1 fL (80.0-100.0); Mean Platelet Volume 7.9; Monocytes # (A) 0.5 k/uL (0-1.0); Monocytes % (A) 3 %; Neutrophils # (A) 12.1 k/uL (1.3-7.7); Neutrophils % (A) 90 %; Platelet Count 468 k/uL (150-450); RDW 12.5 % (11.5-15.5); WBC 13.4 k/uL (3.8-10.6)
--- NOTE | 2022-08-15 14:19 | ED ---
General Adult HPI - General Chief complaint: Nausea/Vomiting/Diarrhea Stated complaint: weakness Time Seen by Provider: 08/15/22 13:40 Source: EMS Mode of arrival: EMS Limitations: no limitations - History of Present Illness Initial comments: Dictation was produced using [employer] dictation software. please excuse any grammatical, word or spelling errors. Chief Complaint: 82-year-old male presents with rectal pain and constipation History of Present Illness: Patient is a 82-year-old male presents emergency department for rectal pain and constipation. Patient reports that his symptoms began this morning upon waking up. He did pass a very small amounts of hard stool. He didn't report associated nausea. Patient tried to manually disimpact himself. He has been having hard stools recently. Patient has been on multiple pain medications recently secondary to chronic knee pain. He is scheduled to have any procedure however the procedure is being delayed. The ROS documented in this emergency department record has been reviewed and confirmed by me. Those systems with pertinent positive or negative responses have been documented in the HPI. All other systems are other negative and/or noncontributory. PHYSICAL EXAM: General Impression: Alert and oriented x3, not in acute distress HEENT: Normocephalic atraumatic, extra-ocular movements intact, pupils equal and reactive to light bilaterally, mucous membranes moist. Cardiovascular: Heart regular rate and rhythm Chest: Able to complete full sentences, no retractions, no tachypnea Abdomen: abdomen soft, non-tender, non-distended, no organomegaly Musculoskeletal: Pulses present and equal in all extremities, no peripheral edema Motor: no focal deficits noted Neurological: CN II-XII grossly intact, no focal motor or sensory deficits noted Skin: Intact with no visualized rashes Psych: Normal affect and mood Rectal exam: Hard stools felt in the rectal vault ED course: 82-year-old male presents emergency Department with constipation. Vital signs upon arrival are within acceptable limits. Physical examination is benign. Patient multiple heart stools felt in the rectal vault. Manual disimpaction was performed at bedside with successful removal. Chart review was performed Laboratory evaluation obtained. CBC within acceptable limits of metabolic panel is within acceptable limits. X-ray shows no acute processes. 2:53 PM: Reevaluated at bedside funny stable medical condition. States the symptoms are improved. Patient be discharged. He is given prescription for MiraLAX. Advised follow-up with primary care doctor. - Related Data Home Medications Medication Instructions Recorded Confirmed lisinopriL [Zestril] 10 mg PO BID 09/11/18 08/09/22 Fexofenadine HCl [Lucia Allergy] 180 mg PO DAILY 03/07/19 08/09/22 Glucosamine/Chondr Solorzano A Sod [Osteo 1 tab PO Q48H 03/07/19 08/09/22 Bi-Flex Caplet] Acetaminophen-Codeine 300-30mg 1 tab PO Q8HR PRN 08/09/22 08/09/22 [Tylenol w/codeine #3] Atorvastatin [Lipitor] 20 mg PO HS 08/09/22 08/09/22 Cholecalciferol [Vitamin D3 (125 125 mcg PO Q48H 08/09/22 08/09/22 Mcg = 5000 Iu)] Ibuprofen [Motrin Ib] 400 mg PO TID PRN 08/09/22 08/09/22 Multivit-Min/FA/Lycopen/Lutein 1 each PO Q48H 08/09/22 08/09/22 [Centrum Silver Tablet] Previous Rx's Medication Instructions Recorded Metoprolol Tartrate [Lopressor] 50 mg PO BID #20 tab 09/04/18 polyethylene glycoL 3350 [Miralax] 17 gm PO DAILY 3 Days #3 packet 08/15/22 Allergies Allergy/AdvReac Type Severity Reaction Status Date / Time No Known Allergies Allergy Verified 08/09/22 11:14 Review of Systems ROS Statement: Those systems with pertinent positive or pertinent negative responses have been documented in the HPI. ROS Other: All systems not noted in ROS Statement are negative. Past Medical History Past Medical History: Hypertension Additional Past Medical History / Comment(s): seasonal allergies, skin cancer History of Any Multi-Drug Resistant Organisms: None Reported Past Surgical History: Appendectomy, Hernia Repair, Joint Replacement Additional Past Surgical History / Comment(s): foot Past Anesthesia/Blood Transfusion Reactions: No Reported Reaction Past Psychological History: No Psychological Hx Reported Smoking Status: Never smoker Past Alcohol Use History: Rare Past Drug Use History: None Reported - Past Family History Mother Family Medical History: Cancer Brother(s) Family Medical History: Cancer General Exam Limitations: no limitations Course Vital Signs 08/15/22 13:40 Temperature 98.1 F Pulse Rate 64 Respiratory 18 Rate Blood Pressure 146/64 O2 Sat by Pulse 98 Oximetry Medical Decision Making - Lab Data Result diagrams: 08/15/22 14:10 08/15/22 14:10 Lab Results 08/15/22 08/15/22 Range/Units 14:10 14:10 WBC 13.4 H (3.8-10.6) k/uL RBC 4.00 L (4.30-5.90) m/uL Hgb 11.5 L (13.0-17.5) gm/dL Hct 34.5 L (39.0-53.0) % MCV 86.1 (80.0-100.0) fL MCH 28.8 (25.0-35.0) pg MCHC 33.4 (31.0-37.0) g/dL RDW 12.5 (11.5-15.5) % Plt Count 468 H (150-450) k/uL MPV 7.9 Neutrophils % 90 % Lymphocytes % 6 % Monocytes % 3 % Eosinophils % 1 % Basophils % 0 % Neutrophils # 12.1 H (1.3-7.7) k/uL Lymphocytes # 0.7 L (1.0-4.8) k/uL Monocytes # 0.5 (0-1.0) k/uL Eosinophils # 0.1 (0-0.7) k/uL Basophils # 0.0 (0-0.2) k/uL Sodium 131 L (137-145) mmol/L Potassium 5.2 H (3.5-5.1) mmol/L Chloride 100 (98-107) mmol/L Carbon Dioxide 23 (22-30) mmol/L Anion Gap 8 mmol/L BUN 26 H (9-20) mg/dL Creatinine 0.98 (0.66-1.25) mg/dL Est GFR (CKD-EPI)AfAm 83 (>60 ml/min/1.73 sqM) Est GFR (CKD-EPI)NonAf 72 (>60 ml/min/1.73 sqM) Glucose 122 H (74-99) mg/dL Calcium 8.8 (8.4-10.2) mg/dL Total Bilirubin 0.6 (0.2-1.3) mg/dL AST 22 (17-59) U/L ALT 18 (4-49) U/L Alkaline Phosphatase 121 (38-126) U/L Total Protein 6.1 L (6.3-8.2) g/dL Albumin 3.6 (3.5-5.0) g/dL Disposition Clinical Impression: Constipation Disposition: HOME SELF-CARE Condition: Good Instructions (If sedation given, give patient instructions): Constipation (DC) Prescriptions: polyethylene glycoL 3350 [Miralax] 17 gm PO DAILY 3 Days #3 packet Is patient prescribed a controlled substance at d/c from ED?: No Referrals: Joselito Alfonso MD [Primary Care Provider] - 1-2 days Time of Disposition: 14:55
[2022-08-15 14:33] LABS: Albumin 3.6 g/dL (3.5-5.0); Calcium 8.8 mg/dL (8.4-10.2); Potassium 5.2 mmol/L (3.5-5.1); Total Bilirubin 0.6 mg/dL (0.2-1.3); Total Protein 6.1 g/dL (6.3-8.2)
--- NOTE | 2022-08-15 14:44 | XR ---
EXAMINATION TYPE: XR abdomen 1V DATE OF EXAM: 08/15/2022 COMPARISON: NONE HISTORY: Nausea TECHNIQUE: 2 views upright FINDINGS: There is no sign of intestinal obstruction or pneumoperitoneum. Fecal pattern is normal. No evidence of a mass. Lung bases are clear. No pathologic calcification. There is left hip prosthesis. IMPRESSION: Nonacute abdomen. 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
[2022-08-15 15:26] VITALS: BP 124/76; PULSE 78; TEMP 98.6
== END 2022-08-15 15:00 | disposition home or self-care (01) ==
LOC: EC 13:37
DX: K59.00 Constipation, unspecified (principal); I10 Essential (primary) hypertension; Z90.89 Acquired absence of other organs; Z79.899 Other long term (current) drug therapy
CPT/HCPCS: 36415; 74018; 80053; 85025; 99284

== ENCOUNTER → 2022-08-23 | Outpatient (CLI) | payer MEDICARE, BC ==
[2022-08-23 18:14] LABS: Basophils # (A) 0.03 X 10*3/uL (0.00-0.10); Basophils % (A) 0.3 %; Eosinophils # (A) 0.04 X 10*3/uL (0.04-0.35); Eosinophils % (A) 0.4 %; HCT 35.5 % (39.6-50.0); HGB 11.5 g/dL (13.0-17.0); Immature Grans, Automated 0.4 %; Lymphocytes # (A) 1.63 X 10*3/uL (0.90-5.00); Lymphocytes % (A) 15.8 %; MCH 28.8 pg (27.0-32.0); MCHC 32.4 g/dL (32.0-37.0); MCV 88.8 fL (80.0-97.0); Mean Platelet Volume 8.8 fL (9.5-12.2); Monocytes % (A) 8.7 %; NRBC Per 100 WBC 0 /100 WBCS (0.0-0.0); Neutrophils # (A) 7.69 X 10*3/uL (1.80-7.70); Neutrophils % (A) 74.4 %; Platelet Count 589 X 10*3/uL (140-440); RDW 12.3 % (11.5-14.5); WBC 10.33 X 10*3/uL (4.50-10.00)
[2022-08-23 18:52] LABS: BUN/Creat Ratio 15.54 Ratio (12.00-20.00); Blood Urea Nitrogen 17.4 mg/dL (9.0-27.0); Calcium 9.2 mg/dL (8.7-10.3); Carbon Dioxide 25.4 mmol/L (20.0-27.5); Non-African American GFR(CKD) 60.4 (60.0-200.0)
[2022-08-23 19:52] LABS: Appearance,Urine Clear (Clear); Bilirubin,Urine Negative (Negative); Blood,Urine Negative (Negative); Color,Urine Yellow (Yellow); Ketones,Urine Negative (Negative); Nitrite,Urine Negative (Negative); Specific Gravity,Urine 1.018 (1.001-1.030); Urobilinogen,Urine 0.2 (0.2,1.0)
== END | disposition home or self-care (01) ==
LOC: LABWHC1 14:28
PROVIDERS: ATTEND Internal Medicine
DX: E87.5 Hyperkalemia (principal); D72.829 Elevated white blood cell count, unspecified; N39.0 Urinary tract infection, site not specified
CPT/HCPCS: 36415; 80048; 81003; 85025; 87086

== ENCOUNTER 2022-08-27 05:42 | Inpatient (IN) | payer MEDICARE, BC ==
[2022-08-09 11:52] VITALS: BMI 26.3
--- NOTE | 2022-08-26 10:53 | P.HPOR ---
History of Present Illness H&P Date: 08/26/22 Chief Complaint: Right hip pain The patient is an 82-year-old retired male who presents with progressive right hip pain secondary to osteoarthrosis worsening over the past couple years. He is having difficult time with any weightbearing activities. He's been using a cane. He takes anti-inflammatories intermittently. Review of Systems As per HPI Past Medical History Past Medical History: Cancer, Hyperlipidemia, Hypertension, Osteoarthritis (OA) Additional Past Medical History / Comment(s): seasonal allergies, skin cancer. lft hip replacement. was in er 08/22/22 with constipation issues due to pain meds History of Any Multi-Drug Resistant Organisms: None Reported Past Surgical History: Appendectomy, Hernia Repair, Joint Replacement, Orthopedic Surgery Additional Past Surgical History / Comment(s): bone spur right foot., arthroscopy right knee., total left hip Past Anesthesia/Blood Transfusion Reactions: No Reported Reaction Smoking Status: Never smoker - Past Family History Mother Family Medical History: Cancer Additional Family Medical History / Comment(s): lung cancer Brother(s) Family Medical History: Cancer Additional Family Medical History / Comment(s): liver cancer Medications and Allergies Home Medications Medication Instructions Recorded Confirmed Type Metoprolol Tartrate [Lopressor] 50 mg PO BID #20 tab 09/04/18 08/23/22 Rx lisinopriL [Zestril] 10 mg PO BID 09/11/18 08/23/22 History Fexofenadine HCl [Lucia Allergy] 180 mg PO DAILY 03/07/19 08/23/22 History Glucosamine/Chondr Solorzano A Sod [Osteo 1 tab PO Q48H 03/07/19 08/23/22 History Bi-Flex Caplet] Atorvastatin [Lipitor] 20 mg PO HS 08/09/22 08/23/22 History Cholecalciferol [Vitamin D3 (125 125 mcg PO Q48H 08/09/22 08/23/22 History Mcg = 5000 Iu)] Ibuprofen [Motrin Ib] 400 mg PO TID PRN 08/09/22 08/23/22 History Multivit-Min/FA/Lycopen/Lutein 1 each PO Q48H 08/09/22 08/23/22 History [Centrum Silver Tablet] polyethylene glycoL 3350 [Miralax] 17 gm PO DAILY 3 Days #3 packet 08/15/22 08/23/22 Rx Hydrocodone/Acetaminophen 1 tab PO Q6H 08/23/22 08/23/22 History [Hydrocodone/Acetaminophen 5-325] Allergies Allergy/AdvReac Type Severity Reaction Status Date / Time No Known Allergies Allergy Verified 08/23/22 17:02 Physical Examination - Hip right Gait: antalgic Tenderness with palpation: anterior Pain with motion: internal rotation and hip flexion ROM: flexion: 70 degrees ROM: internal rotation: 0 degrees (With pain) ROM: external rotation: 50 degrees Crepitus with motion: Yes Strength: extension: 5/5 Strength: flexion: 5/5 Strength: abduction: 5/5 Tests: impingement tests: positive Results The patient is a well-developed well-nourished male a proximal 6 foot 2, 205 pounds of mesomorphic habitus. HEENT exam is nonfocal, neck is supple. He is nontender about the lumbar spine. Straight leg raise is negative in the right lower extremity. Clinically he has 1 cm shortening of the right lower extremity. His distal neurovascular appears intact in the right lower extremity. - Diagnostic results Hip x-ray: image reviewed (2 views of the right hip obtained in the office show severe osteoarthrosis with [id number] changes. Subchondral sclerosis is present.) Assessment and Plan Assessment: Right hip severe osteoarthrosis Plan: I talked to the patient length regarding his condition along with treatment options. At this point is quite symptomatically limited because of pain related to his right hip osteoarthrosis. He opts to proceed with surgery. Risks and benefits were discussed at length in layman's terms. We will institute DVT prophylaxis postoperatively.
[~2022-08-27 05:42] MED LIST: ACETAMINOPHEN TAB 500 MG TAB PO PRN; DEXAMETHASONE SOD PHOSPHATE 4 MG/ML 1 ML VIAL IV ONE; MELOXICAM 7.5 MG TAB PO PRN; TRANEXAMIC ACID IN NACL,ISO-OS 1,000 MG in SALINE 1 100ML.BAG IVPB PRN
[2022-08-27] MEDS: LACTATED RINGERS 1,000 ML IV SCH (06:14)
[2022-08-27 07:01] LABS: Basophils % (A) 0 %; Eosinophils # (A) 0.1 k/uL (0-0.7); Eosinophils % (A) 1 %; HCT 35.9 % (39.0-53.0); HGB 12.1 gm/dL (13.0-17.5); Lymphocytes # (A) 1.5 k/uL (1.0-4.8); Lymphocytes % (A) 15 %; MCH 28.7 pg (25.0-35.0); MCHC 33.6 g/dL (31.0-37.0); MCV 85.6 fL (80.0-100.0); Mean Platelet Volume 6.8; Monocytes # (A) 0.7 k/uL (0-1.0); Monocytes % (A) 7 %; Neutrophils % (A) 77 %; Platelet Count 538 k/uL (150-450); RDW 12.2 % (11.5-15.5); WBC 10.4 k/uL (3.8-10.6)
[2022-08-27] MEDS: ONDANSETRON 4 MG/2 ML VIAL IVP ONE ×2 (07:11→12:04)
[2022-08-27 07:12] LABS: Calcium 9.2 mg/dL (8.4-10.2); Potassium 5.5 mmol/L (3.5-5.1)
[2022-08-27 07:15] LABS: INR 1.1 (<1.2); Prothrombin Time 11.2 sec (9.0-12.0)
[2022-08-27] MEDS ORDERED: MIDAZOLAM 2 MG/2 ML VIAL IVP ONE (07:30)
[2022-08-27] MEDS ORDERED: TRANEXAMIC ACID IN NACL,ISO-OS 1,000 MG/100 ML BAG ONE (07:45)
[2022-08-27] MEDS ORDERED: fentaNYL (PF) 50 MCG/ML 2 ML AMP ONE (07:45)
[2022-08-27] MEDS ORDERED: DEXAMETHASONE SOD PHOSPHATE 4 MG/ML 1 ML VIAL ONE (07:45)
[2022-08-27] MEDS ORDERED: SODIUM CHLORIDE 0.9% (PF) 10 ML VIAL ONE (07:45)
[2022-08-27] MEDS ORDERED: MIDAZOLAM 2 MG/2 ML VIAL ONE (07:45)
[2022-08-27] MEDS ORDERED: ROPIVACAINE 5 MG/ML 30 ML VIAL ONE (07:45)
[2022-08-27] MEDS ORDERED: ePHEDrine 50 MG/ML 1 ML VIAL ONE (07:45)
[2022-08-27] MEDS ORDERED: PROPOFOL 10 MG/ML 20 ML VIAL IV ONE (07:45)
[2022-08-27] MEDS ORDERED: ceFAZolin 1,000 MG in SODIUM CHLORIDE 0.9% 1,000 ML IRRIGATION ONE (08:16)
[2022-08-27] MEDS ORDERED: LACTATED RINGERS 1,000 ML IV ONE (08:50)
[2022-08-27] MEDS ORDERED: HYDROcodone/APAP 5-325MG 1 EACH TAB PO PRN (10:00)
[2022-08-27] MEDS ORDERED: NALOXONE 0.4 MG/ML 1 ML VIAL IV PRN (10:00)
[2022-08-27] MEDS ORDERED: MAGNESIUM HYDROXIDE 2,400 MG/10 ML CUP PO PRN (10:00)
[2022-08-27] MEDS ORDERED: HYDROmorphone 0.5 MG/0.5 ML SYRINGE IVP PRN ×2 (10:00)
--- NOTE | 2022-08-27 10:08 | FL ---
EXAMINATION TYPE: FL guidance operating room DATE OF EXAM: 08/27/2022 HISTORY: Fluoroscopy time 71 seconds of fluoroscopy provided. IMPRESSION: 1. Fluoroscopy time.
--- NOTE | 2022-08-27 10:12 | XR ---
EXAMINATION TYPE: XR Hip Limited RT DATE OF EXAM: 08/27/2022 COMPARISON: NONE HISTORY: Postop TECHNIQUE: One view submitted. FINDINGS: There is postsurgical change in near anatomic alignment. There is soft tissue edema and emphysema. IMPRESSION: 1. Postoperative change. Appears in near-anatomic alignment.
--- NOTE | 2022-08-27 10:21 | P.OP ---
Date of Procedure: 08/27/22 Preoperative Diagnosis: Right hip severe osteoarthrosis Postoperative Diagnosis: Same Procedure(s) Performed: Right total hip arthroplastypress-fitanterior approach Implants: Depuy Corail size 15, 135, high offset collared press-fit femoral stem, 36+1.5 cobalt chrome femoral head, 58 mm Kellogg acetabular shell with +4 neutral liner. Anesthesia: spinal Surgeon: Guzman Schuler Grievance And Appeals Coordinator #1: Joseph Bullard Estimated Blood Loss (ml): 300 Pathology: other (Femoral head) Condition: stable Disposition: PACU Indications for Procedure: The patient's an 82-year-old male who presents with progressive right hip pain secondary to osteoarthrosis despite conservative measures. A discussion of the risks and benefits of operative intervention versus continued conservative measures was made with patient. He opted to proceed with surgery. Operative risks to include infection, neurovascular injury, development of blood clots, fracture, component loosening/failure, leg length discrepancy, and possible need for subsequent procedures was discussed. Informed consent was obtained. Operative Findings: As below Description of Procedure: The patient was brought to the operating room, and after induction of spinal anesthesia was placed supine on the Shana table. Positioning was checked with fluoroscopy. The right hip was then prepped and draped in a normal fashion. A 12 cm incision was then made starting 2 fingerbreadths distal and 3 finger breaths posterior to the ASIS in line with the proximal femur. The skin was incised sharply. Subcutaneous tissues were divided sharply. Electrocautery was used for hemostasis. The fascia was split in line with skin incision. The interval between the sartorius and tensor fascia penny was then bluntly developed. The posterior fascia was opened with electrocautery. The lateral circumflex vessels were identified and cauterized prior to sectioning. A retractor was placed along the superior femoral neck as well as the anterior acetabular rim. A wide capsulotomy was performed. The neck cut was then made at a 45 angle to the shaft approximately 1 1/2 cm above the level of the lesser trochanter. The head was extracted. Attention was then paid towards preparing the acetabular. Anterior and posterior retractors were placed. The remaining capsular labral tissue sharply debrided clearly defining the acetabular margins. I began reaming with a 51 mm reamer taking care to initially medialize then reaming at 45 of abduction and 20 of anteversion. Sequential reaming is performed up to 57 mm. A trial 58 mm acetabular shell was inserted in the same orientation and was fully seated. Positioning was checked with fluoroscopy. The final T8 mm acetabular shell was inserted again at 45 of abduction and 20 of anteversion. This was fully seated. I did place 3 cancellus screws 6.5 mm x 30 mm with the aid of fluoroscopy for additional stability. A +4 neutral polyethylene liner was impacted. Care was taken to avoid any soft tissue interposition. Pulsatile lavage was utilized. Attention was then paid towards preparing the proximal femur. The saddle region was cleared of soft tissue. A canal finder was used to find the femoral canal. Sequential broaching was performed up to size 15 taking care to lateralize proximally. A calcar mill was used to fashion the medial calcar. There was go od rotational stability. A high offset 135 neck along with a 36 mm +1.5 head was placed. The hip was gently reduced. Fluoroscopy was used to check the adequacy of positioning along with leg lengths. I felt both were good. The hip was gently dislocated. The trial components were removed. The final size 15 collared 135 high offset press-fit femoral stem was inserted parallel to the posterior cortex. This was fully seated and there was good rotational stability. A 36 mm +1.5 head was placed. This was gently impacted. The hip was then gently reduced. Final fluoroscopic view showed adequate placement implant along with congregational of leg length. Stability was checked with 80 of external rotation and 60 of extension of the right hip. The wound was irrigated with sterile lavage. The fascia was closed with running 0 Vicryl suture. There was minimal drainage therefore a deep drain was not placed. The second dose of IV TXA was given. The subcutaneous tissues were emily pproximated interrupted 2-0 Vicryl sutures. The skin was reapproximated with 3-0 subcuticular strata fix suture. Skin tape and adhesive was applied. A sterile dressing was applied. The patient was then awoken from sedation and transferred to recovery room in good condition. Blood loss was estimated at 300 mL. No complications were incurred. Sponge and needle counts were correct at the end of the case. Josehp PATEL assisted during the major components is case to include exposure, bone resection, implantation, and closure.
[2022-08-27] MEDS: HYDROmorphone 0.5 MG/0.5 ML SYRINGE IVP PRN ×2 (10:43→11:00)
--- NOTE | 2022-08-27 10:45 | XR ---
EXAMINATION TYPE: XR Hip Limited RT DATE OF EXAM: 08/27/2022 CLINICAL HISTORY: Right hip pain and osteoarthritis. TECHNIQUE: Single AP portable view of right hip is obtained immediately postoperatively. COMPARISON: Outside right hip x-ray June 28, 2022 FINDINGS: Metallic hardware from total right hip arthroplasty is seen and appears satisfactory in ali gnment and position. There is evidence of recent surgery with subcutaneous gas noted laterally. IMPRESSION: Metallic hardware from right hip arthroplasty is satisfactory in position.
[2022-08-27] MEDS: HYDROcodone/APAP 7.5-325MG 1 EACH TAB PO PRN (18:13)
[2022-08-27] MEDS ORDERED: HYDROcodone/APAP 5-325MG 1 EACH TAB PO SCH (19:00)
[2022-08-27] MEDS: METOPROLOL TARTRATE 50 MG TAB PO SCH (20:16)
[2022-08-27] MEDS: ATORVASTATIN 20 MG TAB PO SCH (20:16)
[2022-08-27] MEDS: lisinopriL 10 MG TAB PO SCH (20:16)
[2022-08-27] MEDS: SENNOSIDES-DOCUSATE SODIUM 1 EACH TAB PO SCH (20:16)
[2022-08-28] MEDS: HYDROcodone/APAP 7.5-325MG 1 EACH TAB PO PRN ×4 (00:13→22:50)
[2022-08-28] MEDS: LACTATED RINGERS 1,000 ML IV SCH (06:47)
[2022-08-28] MEDS: lisinopriL 10 MG TAB PO SCH (08:36)
[2022-08-28] MEDS: METOPROLOL TARTRATE 50 MG TAB PO SCH ×2 (08:36→20:45)
[2022-08-28] MEDS: CHOLECALCIFEROL 125 MCG (5000 IU) TABLET PO SCH (08:41)
[2022-08-28] MEDS: LORATADINE 10 MG TAB PO SCH (08:41)
[2022-08-28] MEDS: RIVAROXABAN 10 MG TAB PO SCH (08:41)
[2022-08-28] MEDS: MULTIVITAMINS, THERA 1 EACH TAB PO SCH (08:42)
[2022-08-28] MEDS: polyethylene glycoL 3350 17 GM POWD.PACK PO SCH (08:42)
--- NOTE | 2022-08-28 09:58 | P.PN ---
Subjective Progress Note Date: 08/28/22 Principal diagnosis: Status post direct anterior right total hip arthroplasty Patient evaluated at bedside, he is resting comfortably in his hospital bed. He states he didn't sleep very well last night. The pain is well-controlled. He's been urinating with no issues, he is passing gas also. He denies any headaches, lightheadedness, chest pain or shortness of breath Objective - Vital Signs Vital signs: Vital Signs Temp 97.8 F 08/28/22 08:00 Pulse 63 08/28/22 08:00 Resp 17 08/28/22 08:00 BP 98/64 08/28/22 08:00 Pulse Ox 98 08/28/22 08:00 FiO2 Intake & Output 08/27/22 08/28/22 08/28/22 18:59 06:59 18:59 Intake Total 1251 Output Total 300 Balance 951 Weight 91.7 kg Intake: IV 1251 Output: Estimated Blood Loss 300 Other: Voiding Method Urinal # Voids 0 5 - Exam Right lower extremity: Incision is clean, dry, and intact. The exofin fusion tape is in good condition. There is minimal soft tissue swelling and ecchymosis surrounding the medial and lateral aspects of the incision. Calf is soft, no tenderness with palpation. Plantar flexion, dorsiflexion, EHL, FHL are intact. Sensory exam to light touch throughout the extremity is intact, dorsal pedis pulses 2+. - Labs CBC & Chem 7: 08/27/22 06:30 08/27/22 06:30 Assessment and Plan Assessment: Postoperative day 1 status post right direct anterior total hip replacement Plan: Pain control, continue current medications DVT prophylaxis, continue current medication Monitor surgical dressing, ok to leave open to air Encourage incentive spirometer PT/OT daily Medical recommendations Discharge planning: Patient would like to be discharged to [facility], patient's is there at this time. Patient has no help at home. Will discuss with case management Time with Patient: Less than 30
[2022-08-28 11:34] LABS: Basophils # (A) 0.01 X 10*3/uL (0.00-0.10); Basophils % (A) 0.1 %; Eosinophils # (A) 0 X 10*3/uL (0.04-0.35); Eosinophils % (A) 0 %; HCT 28.2 % (39.6-50.0); HGB 9.2 g/dL (13.0-17.0); Immature Grans, Automated 0.5 %; Lymphocytes # (A) 1.04 X 10*3/uL (0.90-5.00); Lymphocytes % (A) 6.3 %; MCH 28.8 pg (27.0-32.0); MCHC 32.6 g/dL (32.0-37.0); MCV 88.1 fL (80.0-97.0); Mean Platelet Volume 8.8 fL (9.5-12.2); Monocytes # (A) 1.48 X 10*3/uL (0.20-1.00); NRBC Per 100 WBC 0 /100 WBCS (0.0-0.0); Neutrophils # (A) 13.77 X 10*3/uL (1.80-7.70); Neutrophils % (A) 84.1 %; Platelet Count 455 X 10*3/uL (140-440); RDW 12.4 % (11.5-14.5); WBC 16.39 X 10*3/uL (4.50-10.00)
[2022-08-28 11:53] LABS: African American GFR (CKD) 67.1 (60.0-200.0); Anion Gap 9.4 mmol/L (10.00-18.00); BUN/Creat Ratio 15.69 Ratio (12.00-20.00); Blood Urea Nitrogen 18.2 mg/dL (9.0-27.0); Calcium 8.7 mg/dL (8.7-10.3); Carbon Dioxide 25.6 mmol/L (20.0-27.5); Non-African American GFR(CKD) 57.9 (60.0-200.0); Potassium 5.3 mmol/L (3.5-5.5)
--- NOTE | 2022-08-28 13:03 | P.CONS ---
History of Present Illness - Reason for Consult Consult date: 08/28/22 . Medical management Requesting physician: Guzman Schuler (Postop management) - History of Present Illness Medical consult Date of service 08/28/2022 Dictation by , Patient seen today [id number] and he was conscious alert oriented eating his lunch Status post right total hip arthroplasty on 08/27/[address] Duong. No specific complaint except been controlled with the current medication by the orthopedic surgeon. Patient had low blood pressure this morning and medication for hypertension was held. Review of laboratories: His white count increased to 16.39 and hemoglobin dropped to 9.2 and hematocrit dropped to 28.2 which is post operative expected Chemistry: Sodium 131 low, his potassium corrected from 5.5 yesterday today is 5.3. BUN 18.2 and creatinine 1.2 with the underlying chronic kidney disease stage III however improved today to 57.9. Vital sign: Temperature 97.8 F oral, heart rate 63 her hematocrit, his respiratory rate 17 intermittent. And blood pressure 98/64 blood pressure medication was held oxygen saturation on room air 98%. On examination: Patient was conscious alert oriented 3 able to give clear history no evidence of confusion or disorientation and he did not complain of significant pain Patient has right hip arthroplasty yesterday afternoon on 08/27/2022. He was able to stand up. He uses a walker and the token to the bathroom and he just had gases at that time. Head was normocephalic and atraumatic pupil was equal reactive, no headache no b lurred vision no feeling of syncopal Oropharynx natural disease and he is eating Neck was supple no JVD no thyromegaly no lymphadenopathy trachea midline Chest is clear with no wheezes nor rhonchi's normal breath sounds Heart regular sinus rhythm Abdomen positive bowel sounds no tenderness in the four-quadrant. Extremities: Status post right hip arthroplasty stable, no edema of the ankle or the lower extremities no tenderness on the calf muscle and patient on anticoagulation per orthopedic. No neurological deficit No psychiatric deficit Assessment: #1 status post right total hip arthroplasty with the underlying advanced osteoarthritis of the right hip associated with inability to walk and pain #2 postoperative anemia with drop of hemoglobin expected with the surgery #3 leukocytosis post surgery expected with the surgery #4 hypotension and medication for hypertension has been held with the plan to be discontinued the lisinopril. #5 mild hyponatremia with the sodium today 131, hyperkalemia resolved. Plan: #1 discontinue the IV with than lactated ringer patient is able to drink and s wallow normally with no restriction #2 obtain BMP in a.m. to follow on the hyponatremia. And the potassium level #3 monitor the blood pressure, discontinue lisinopril for now. #4 continue metoprolol tartrate to maintain his heart rate. #5 orthopedic plan to discharge the patient to [facility] for continuing rehab on Tuesday #6 I'll see him tomorrow. Past Medical History Past Medical History: Cancer, Hyperlipidemia, Hypertension, Osteoarthritis (OA) Additional Past Medical History / Comment(s): seasonal allergies, skin cancer. lft hip replacement. was in er 08/22/22 with constipation issues due to pain meds History of Any Multi-Drug Resistant Organisms: None Reported Past Surgical History: Appendectomy, Hernia Repair, Joint Replacement, Orthopedic Surgery Additional Past Surgical History / Comment(s): bone spur right foot., arthrosco py right knee., total left hip Past Anesthesia/Blood Transfusion Reactions: No Reported Reaction Past Psychological History: No Psychological Hx Reported Smoking Status: Never smoker Past Alcohol Use History: Occasional Past Drug Use History: None Reported - Past Family History Mother Family Medical History: Cancer Additional Family Medical History / Comment(s): lung cancer Brother(s) Family Medical History: Cancer Additional Family Medical History / Comment(s): liver cancer Medications and Allergies Home Medications Medication Instructions Recorded Confirmed Type Metoprolol Tartrate [Lopressor] 50 mg PO BID #20 tab 09/04/18 08/27/22 Rx lisinopriL [Zestril] 10 mg PO BID 09/11/18 08/27/22 History Fexofenadine HCl [Lucia Allergy] 180 mg PO DAILY 03/07/19 08/27/22 History Glucosamine/Chondr Solorzano A Sod [Osteo 1 tab PO Q48H 03/07/19 08/27/22 History Bi-Flex Caplet] Atorvastatin [Lipitor] 20 mg PO HS 08/09/22 08/27/22 History Cholecalciferol [Vitamin D3 (125 125 mcg PO Q48H 08/09/22 08/27/22 History Mcg = 5000 Iu)] Ibuprofen [Motrin Ib] 400 mg PO TID PRN 08/09/22 08/27/22 History Multivit-Min/FA/Lycopen/Lutein 1 each PO Q48H 08/09/22 08/27/22 History [Centrum Silver Tablet] polyethylene glycoL 3350 [Miralax] 17 gm PO DAILY 3 Days #3 packet 08/15/22 08/27/22 Rx Hydrocodone/Acetaminophen 1 tab PO Q6H 08/23/22 08/27/22 History [Hydrocodone/Acetaminophen 5-325] Allergies Allergy/AdvReac Type Severity Reaction Status Date / Time No Known Allergies Allergy Verified 08/27/22 06:57 Physical Exam Vitals: Vital Signs Temp Pulse Resp BP Pulse Ox 08/28/22 08:00 97.8 F 63 17 98/64 98 08/28/22 02:00 98.4 F 73 16 122/71 98 08/27/22 20:00 98.2 F 93 16 114/71 95 08/27/22 18:00 16 08/27/22 15:00 97.6 F 72 16 144/77 98 08/27/22 14:25 77 16 125/80 98 08/27/22 13:30 78 16 133/77 98 Intake and Output 08/27/22 08/28/22 08/28/22 22:59 06:59 14:59 Other: Voiding Method Urinal # Voids 0 5 Weight 91.7 kg Results CBC & Chem 7: 08/28/22 06:31 08/28/22 06:31 Labs: Abnormal Lab Results - Last 24 Hours (Table) 08/28/22 08/28/22 Range/Units 06:31 06:31 WBC 16.39 H (4.50-10.00) X 10*3/uL RBC 3.20 L (4.40-5.60) X 10*6/uL Hgb 9.2 L (13.0-17.0) g/dL Hct 28.2 L (39.6-50.0) % Plt Count 455 H (140-440) X 10*3/uL MPV 8.8 L (9.5-12.2) fL Immature Gran # 0.09 H (0.00-0.04) X 10*3/uL Neutrophils # 13.77 H (1.80-7.70) X 10*3/uL Monocytes # 1.48 H (0.20-1.00) X 10*3/uL Eosinophils # 0 L (0.04-0.35) X 10*3/uL Sodium 131 L (135-145) mmol/L Anion Gap 9.40 L (10.00-18.00) mmol/L Est GFR (CKD-EPI)NonAf 57.9 L (60.0-200.0) Glucose 124 H (70-110) mg/dL
[2022-08-28] MEDS: SENNOSIDES-DOCUSATE SODIUM 1 EACH TAB PO SCH (20:46)
[2022-08-28] MEDS: ATORVASTATIN 20 MG TAB PO SCH (20:46)
[2022-08-29] MEDS: METOPROLOL TARTRATE 50 MG TAB PO SCH ×2 (07:18→20:33)
[2022-08-29] MEDS: polyethylene glycoL 3350 17 GM POWD.PACK PO SCH (07:18)
[2022-08-29] MEDS: LORATADINE 10 MG TAB PO SCH (07:18)
[2022-08-29] MEDS: RIVAROXABAN 10 MG TAB PO SCH (07:18)
[2022-08-29] MEDS: HYDROcodone/APAP 7.5-325MG 1 EACH TAB PO PRN ×2 (12:33→18:26)
--- NOTE | 2022-08-29 13:41 | P.PN ---
Subjective Progress Note Date: 08/29/22 Principal diagnosis: Status post direct anterior right total hip arthroplasty Patient evaluated at bedside, he is resting comfortably in his hospital bed. Pain is well-controlled. He's been urinating with no issues, he is passing gas also. He denies any headaches, lightheadedness, chest pain or shortness of breath Objective - Vital Signs Vital signs: Vital Signs Temp 98.2 F 08/29/22 07:54 Pulse 108 H 08/29/22 07:54 Resp 16 08/29/22 07:54 BP 122/81 08/29/22 07:54 Pulse Ox 98 08/29/22 07:54 FiO2 Intake & Output 08/28/22 08/29/22 08/29/22 18:59 06:59 18:59 Output Total 400 Balance -400 Output: Urine 400 Other: Voiding Method Urinal Toilet Urinal # Voids 4 4 1 # Bowel Movements 1 1 - Exam Right lower extremity: Incision is clean, dry, and intact. The exofin fusion tape is in good condi tion. There is minimal soft tissue swelling and ecchymosis surrounding the medial and lateral aspects of the incision. Calf is soft, no tenderness with palpation. Plantar flexion, dorsiflexion, EHL, FHL are intact. Sensory exam to light touch throughout the extremity is intact, dorsal pedis pulses 2+. - Labs CBC & Chem 7: 08/28/22 06:31 08/28/22 06:31 Assessment and Plan Assessment: Postoperative day #2 status post right direct anterior total hip replacement Plan: Pain control, continue current medications DVT prophylaxis, continue current medication Monitor surgical dressing, ok to leave open to air Encourage incentive spirometer PT/OT daily Medical recommendations Discharge planning: Anticipate discharge to [facility] on 08/30/2022 Time with Patient: Less than 30
[2022-08-29] MEDS ORDERED: polyethylene glycoL 3350 17 GM POWD.PACK PO PRN (13:52)
--- NOTE | 2022-08-29 14:02 | P.PN ---
Subjective Progress Note Date: 08/29/22 Progress note dictation by Dr. Minaya Date of visit 08/29/2022. As discussed with his nurse. His heart rate went up however he medicated this morning with the metoprolol, we stopped his ROLAND inhibitor yesterday. During the night found that his blood pressure was down to 99/58 with normal oxygen saturation ox was 98.6 at 20 hours. It resulted in increased heart rate this morning to [id number] and patient resumed his metoprolol this morning his blood pressure was 122/81 with the pulse ox 98% on room air and he is afebrile. I did put parameter for blood pressure and the heart rate for the metoprolol to be continued. Patient had a bowel movement twice this morning and will change of the lengthening glycol 20 as needed only. On the exam patient has no other complaint. The orthopedic team arranging for the usp for rehabilitation at [facility] of treatment which possibility to be on Tuesday or Tuesday depending on availability of the back On exam: No complaint HEENT no changes, oropharynx no changes Neck was supple no JVD no thyromegaly no lymphadenopathy Chest is clear with normal breath sounds Heart was regular sinus rhythm with no chest pain. Patient on Zestril to for his hip surgery for anticoagulation per the orthopedic surgeon Abdomen positive bowel sounds and he had 2 bowel movement Extremities no edema and he able to move with the walker to the bathroom. Neurologically stable Psychiatry stable Assessment: During the night history of hypo-tension and with holding the metoprolol resulted in tachycardia in the morning. Stable vital sign and normal blood pressure 122/81 and the heart rate 108 which she will be improved after he received his dose in the morning with the metoprolol Parameter has been added to his medication ROLAND inhibitor has been discontinued yesterday. Plan continue with the current treatment with the parameter. And patient will be waiting for for further lab on Tuesday or orthopedic as well as rehabilitation placement in [facility] Objective - Vital Signs Vital signs: Vital Signs Temp 98.2 F 08/29/22 07:54 Pulse 108 H 08/29/22 07:54 Resp 16 08/29/22 07:54 BP 122/81 08/29/22 07:54 Pulse Ox 98 08/29/22 07:54 FiO2 Intake & Output 08/28/22 08/29/22 08/29/22 18:59 06:59 18:59 Output Total 400 Balance -400 Output: Urine 400 Other: Voiding Method Urinal Toilet Urinal # Voids 4 4 1 # Bowel Movements 1 1 - Labs CBC & Chem 7: 08/28/22 06:31 08/28/22 06:31
--- NOTE | 2022-08-29 19:05 | P.ANPRN ---
Procedure Note - Anesthesia - Nerve Block Performed Right Erector Spinae Single Time Out Performed: Yes Date of Procedure: 08/27/22 Procedure Start Time: : Procedure Stop Time: :32 Location of Patient: PreOp Indication: Acute Post-Operative Pain, Requested by Surgeon Sedation Type: Sedate with meaningful contact maintained Preparation: Sterile Prep Position: Prone Needle Types: Pajunk Needle Gauge: 21 Ultrasound used to visualize needle placement: Yes Ultrasound used to observe medication spread: Yes Blood Aspirated: No Pain Paresthesia on Injection Noted: No Resistance on Injection: Normal Image Stored and Saved: Yes Events: Uneventful and Well Tolerated (Ropivacaine 0.5% 15 mL plus dexamethasone 4 mg plus normal saline 10 mL given at L1)
[2022-08-29] MEDS: SENNOSIDES-DOCUSATE SODIUM 1 EACH TAB PO SCH (20:33)
[2022-08-29] MEDS: ATORVASTATIN 20 MG TAB PO SCH (20:33)
[2022-08-30] MEDS: HYDROcodone/APAP 7.5-325MG 1 EACH TAB PO PRN ×3 (01:43→15:13)
[2022-08-30] MEDS: MULTIVITAMINS, THERA 1 EACH TAB PO SCH (08:22)
[2022-08-30] MEDS: LORATADINE 10 MG TAB PO SCH (08:22)
[2022-08-30] MEDS: CHOLECALCIFEROL 125 MCG (5000 IU) TABLET PO SCH (08:22)
[2022-08-30] MEDS: RIVAROXABAN 10 MG TAB PO SCH (08:22)
[2022-08-30] MEDS: METOPROLOL TARTRATE 50 MG TAB PO SCH (08:22)
[2022-08-30 09:02] LABS: African American GFR (CKD) 71.6 (60.0-200.0); Anion Gap 9.6 mmol/L (10.00-18.00); BUN/Creat Ratio 20.18 Ratio (12.00-20.00); Blood Urea Nitrogen 22.2 mg/dL (9.0-27.0); Calcium 8.6 mg/dL (8.7-10.3); Carbon Dioxide 26.4 mmol/L (20.0-27.5); Non-African American GFR(CKD) 61.8 (60.0-200.0); Potassium 4.8 mmol/L (3.5-5.5)
--- NOTE | 2022-08-30 09:04 | P.PN ---
Subjective Progress Note Date: 08/30/22 Principal diagnosis: Status post direct anterior right total hip arthroplasty Patient evaluated at bedside, he is resting comfortably in his hospital bed. Pain is well-controlled. He's been urinating with no issues, he is passing gas also. He denies any headaches, lightheadedness, chest pain or shortness of breath. Patient is eager to be discharged to rehab today. Objective - Vital Signs Vital signs: Vital Signs Temp 98.6 F 08/30/22 07:45 Pulse 82 08/30/22 07:45 Resp 17 08/30/22 07:45 BP 135/80 08/30/22 07:45 Pulse Ox 93 L 08/30/22 07:45 FiO2 Intake & Output 08/29/22 08/30/22 08/30/22 18:59 06:59 18:59 Output Total 300 Balance -300 Output: Urine 300 Other: Voiding Method Toilet Urinal # Voids 2 2 # Bowel Movements 1 - Exam Right lower extremity: Incision is clean, dry, and intact. The exofin fusion tape is in good condition. There is minimal soft tissue swelling and ecchymosis surrounding the medial and lateral aspects of the incision. Calf is soft, no tenderness with pa lpation. Plantar flexion, dorsiflexion, EHL, FHL are intact. Sensory exam to light touch throughout the extremity is intact, dorsal pedis pulses 2+. - Labs CBC & Chem 7: 08/28/22 06:31 08/30/22 04:17 Labs: Abnormal Lab Results - Last 24 Hours (Table) 08/30/22 Range/Units 04:17 Sodium 134 L (135-145) mmol/L Anion Gap 9.60 L (10.00-18.00) mmol/L BUN/Creatinine Ratio 20.18 H (12.00-20.00) Ratio Glucose 111 H (70-110) mg/dL Calcium 8.6 L (8.7-10.3) mg/dL Assessment and Plan Assessment: Postoperative day #3 status post right direct anterior total hip replacement Plan: Pain control, plan for discharge on [place] DVT prophylaxis, plan for discharge on xarelto Monitor surgical dressing Encourage incentive spirometer PT/OT daily Medical recommendations Discharge planning: Stable for discharge today Time with Patient: Less than 30
--- NOTE | 2022-08-30 09:10 | P.DS ---
Providers Date of admission: 08/27/2022 Expected date of discharge: 08/30/22 Attending physician: Guzman Schuler Consults: 08/27/22 10:03 Consult Physician Routine Consulting Provider: Joselito Alfonso Reason/Comments: Medical Management s/p right total hip arthroplasty Do you want consulting provider notified?: Yes Primary care physician: Joselito Alfonso Hospital Course: Date of admission: 08/27/2022 Date of discharge: 08/30/2022 Admission diagnosis: Status post direct anterior right total hip arthroplasty Discharge diagnosis: Same Attending physician: Dr. Schuler Surgical procedures: Direct anterior right total hip arthroplasty Brief history: Patient is a 82-year-old male with a history of progressive primary right hip osteoarthritis. At this point patient has failed conservative treatment measures and has opted to proceed with a elective direct anterior right total hip arthroplasty. Hospital course: Details of patient's surgery can be found in operative report. Patient tolerated the procedure well and was subsequently transported to orthopedic floor. Patient's orthopeidc and medical care was provided daily. Patient had daily laboratory tests performed for evaluation of overall blood counts. Patient had daily physical therapy to include strengthening range of motion as well as education with walker ambulation. Patient was treated with Xarelto for their postoperative DVT prophylaxis during their inpatient stay. Patient was noted to have a relatively uneventful postoperative course. Patient reported satisfactory pain control with oral pain medications by postoperative day 0. Patient showed satisfactory progress with physical therapy. Patient moved steadily through the program and had no difficulty meeting the goals by postoperative day 3. Given patient's otherwise satisfactory course and having met physical therapy goals, plan is to discharge patient rehab on postoperative day 3. Discharge condition/disposition: Patient will be discharged to rehab in stable condition. Discharge medications: Instructions are given on resumption of patient's normal daily medications per primary care recommendation, in addition patient will be p rescribed [place] 7.5 mg/325 mg, senna S, Xarelto 10mg. Discharge instructions: 1. Wound care and infection precautions, keep incision dry and covered while showering, no lotions, creams, moisturizers. No soaking, tubs, pools, hottubs. Do not scrub over the incision. 2. Weight-bear as tolerated with walker / cane until follow-up. 3. Ice and elevate when necessary. Do not exceed 20 minutes per hour with ice pack. 4. Utilize compression sleeve until seen at first follow up appointment. 5. Visiting nursing care. 6. Home physical therapy. 7. Pain meds and anticoagulants per prescription. 8. Pain medication has potential to cause constipation. Increase oral fluid and fiber intake. Contact primary care provider if you have not had a bowel movement within 48 hours after discharge 9. No anti-inflammatory medication until discussed at first post operative visit, this including Motrin, Aleve, Mobic, Diclofenac. 10. Follow up in office at 2 weeks postop with Petar Gibbs PA-C/Joesph Cedeno 11. Follow up with your primary care doctor 7-10 days after discharge. 12. Contact [facility] with any questions, . Procedures: Direct anterior right total hip arthroplasty Patient Condition at Discharge: Good Plan - Discharge Summary Discharge Rx Participant: Yes New Discharge Prescriptions: New Rivaroxaban [Xarelto] 10 mg PO DAILY #25 tab HYDROcodone/APAP 7.5-325MG [[place] 7.5] 1 each PO Q6HR PRN #28 tab PRN Reason: Pain Sennosides/Docusate Sodium [Senna-S 8.6-50 mg Tablet] 1 each PO DAILY PRN #30 tablet PRN Reason: Constipation Discontinued Hydrocodone/Acetaminophen [Hydrocodone/Acetaminophen 5-325] 1 tab PO Q6H No Action Metoprolol Tartrate [Lopressor] 50 mg PO BID #20 tab lisinopriL [Zestril] 10 mg PO BID Glucosamine/Chondr Solorzano A Sod [Osteo Bi-Flex Caplet] 1 tab PO Q48H Fexofenadine HCl [Lucia Allergy] 180 mg PO DAILY Multivit-Min/FA/Lycopen/Lutein [Centrum Silver Tablet] 1 each PO Q48H Cholecalciferol [Vitamin D3 (125 Mcg = 5000 Iu)] 125 mcg PO Q48H Ibuprofen [Motrin Ib] 400 mg PO TID PRN PRN Reason: Pain Atorvastatin [Lipitor] 20 mg PO HS polyethylene glycoL 3350 [Miralax] 17 gm PO DAILY 3 Days #3 packet Discharge Medication List Metoprolol Tartrate [Lopressor] 50 mg PO BID #20 tab 09/04/18 [Rx] lisinopriL [Zestril] 10 mg PO BID 09/11/18 [History] Fexofenadine HCl [Lucia Allergy] 180 mg PO DAILY 03/07/19 [History] Glucosamine/Chondr Solorzano A Sod [Osteo Bi-Flex Caplet] 1 tab PO Q48H 03/07/19 [History] Atorvastatin [Lipitor] 20 mg PO HS 08/09/22 [History] Cholecalciferol [Vitamin D3 (125 Mcg = 5000 Iu)] 125 mcg PO Q48H 08/09/22 [History] Ibuprofen [Motrin Ib] 400 mg PO TID PRN 08/09/22 [History] Multivit-Min/FA/Lycopen/Lutein [Centrum Silver Tablet] 1 each PO Q48H 08/09/22 [History] polyethylene glycoL 3350 [Miralax] 17 gm PO DAILY 3 Days #3 packet 08/15/22 [Rx] HYDROcodone/APAP 7.5-325MG [[place] 7.5] 1 each PO Q6HR PRN #28 tab 08/30/22 [Rx] Rivaroxaban [Xarelto] 10 mg PO DAILY #25 tab 08/30/22 [Rx] Sennosides/Docusate Sodium [Senna-S 8.6-50 mg Tablet] 1 each PO DAILY PRN #30 tablet 08/30/22 [Rx] Follow up Appointment(s)/Referral(s): Joseph Bullard PAC [PHYSICIAN PUBLIC ACCOUNTANT] - 2 Weeks Patient Instructions/Handouts: Anterior Hip Replacement (DC) Activity/Diet/Wound Care/Special Instructions: Orthopedic Discharge Instructions: 1. Wound care and infection precautions, keep incision dry and covered while showering, no lotions, creams, moisturizers. No soaking, pools, hot tubs. Do not scrub over incision. 2. Weight-bear as tolerated with walker / cane until follow-up. 3. Ice and elevate when necessary. Do not exceed 20 minutes per hour with ice pack. 4. Utilize compression sleeve until seen at first follow up appointment. 5. Pain meds and anticoagulants per prescription. 6. Pain medication has potential to cause constipation. Increase oral fluid and fiber intake. Contact primary care provider if you have not had a bowel movement within 48 hours after discharge. 7. No anti-inflammatory medication until discussed at first post operative visit, this including Motrin, Aleve, Mobic, Diclofenac 8. Follow up in office at 2 weeks postop with Petar Gibbs PA-C / Joseph Bullard PA-C 9. Follow up with your primary care doctor 7-10 days after discharge. 10. Contact [facility] with any questions, . Keep incision clean, dry, intact. While showering, cover fusion tape with Saran wrap. keep fusion tape on until follow-up appointment in office in 2 weeks Discharge Disposition: TRANSFER TO SNF/ECF
[2022-08-30 09:21] LABS: Basophils # (A) 0.03 X 10*3/uL (0.00-0.10); Basophils % (A) 0.3 %; Eosinophils # (A) 0.08 X 10*3/uL (0.04-0.35); Eosinophils % (A) 0.7 %; HCT 27.4 % (39.6-50.0); HGB 8.8 g/dL (13.0-17.0); Immature Grans, Automated 0.6 %; Lymphocytes # (A) 1.79 X 10*3/uL (0.90-5.00); MCH 28.5 pg (27.0-32.0); MCHC 32.1 g/dL (32.0-37.0); MCV 88.7 fL (80.0-97.0); Mean Platelet Volume 9.1 fL (9.5-12.2); Monocytes % (A) 10.1 %; NRBC Per 100 WBC 0 /100 WBCS (0.0-0.0); Neutrophils # (A) 8.74 X 10*3/uL (1.80-7.70); Neutrophils % (A) 73.3 %; Platelet Count 416 X 10*3/uL (140-440); RBC 3.09 X 10*6/uL (4.40-5.60); RDW 12.8 % (11.5-14.5); WBC 11.91 X 10*3/uL (4.50-10.00)
--- NOTE | 2022-08-30 12:49 | P.PN ---
Subjective Progress Note Date: 08/30/22 (Medical consult follow-up and med rec review) This is the progress note follow-up for medical consult for medical management Dictation by Dr. Minaya date of service 08/30/2022. Patient discharged by the orthopedic surgeon Dr. Duong Patient will be in medical [facility] and he was accepted and going there today Pain medication. Her orthopedic new line is a Xarelto. Orthopedic for the lengths of time the requested. Review of the laboratory today WBC 11.91 improved from 16.39 Hemoglobin 8.8 and the hematocrit 27.4 with the post operative anemia secondary to blood loss expected post operative Patient underwent right hip total arthroplasty and anterior approach by Dr. Duong. Chemistry: Sodium 134 potassium 4.8 and a chloride 98. EGFR 61.8 glucose 111, calcium 8.6 No evidence of hyperkalemia with discontinuation of lisinopril Steve inhibitor with the vital signs stable His temperature 98.6 F oral and heart rate 82 better minute regular sinus respiratory rate 16/m and the blood pressure 135/80 with a mean 98 and his oxygen fluctuating according to the computer from 99-93. On physical exam [id number] discussed with the patient. Line head was normocephalic and atraumatic pupil was equal reactive conjunctiva was pink sclera was nonicteric. Oropharynx natural teeth no fascial asymmetry Neck was supple no JVD no thyromegaly no lymphadenopathy trachea midline Chest is clear to auscultation and percussion no wheezes no rhonchi's patient advised to use his incentive spirometry to avoid atelectasis. Heart regular sinus rhythm no hypotension no blurred vision no confusion or disorientation able to ambulate no dizziness Abdomen is soft positive bowel sounds and he had by BM Extremities no edema and positive pulses he uses walker at this time Psychology stable Neurologically stable Assessment: #1 hypertension and tachycardia controlled with only beta pam will continue 50 mg of metoprolol tartrate twice a day #2 underlying history of hyperkalemia secondary to STEVE inhibitor lisinopril and also episodes hypotension postoperative, discontinued the lisinopril. #3 continue rehab and regimen medical [place] #4 when he complete his rehabilitation will follow him up in the office after finishing the Plan: #1 patient stable for discharge to the intermediate today #2 Xarelto will be adjusted and given by the orthopedic surgeon #3 pain medication for his post surgery will be given by the orthopedic surgeon as he will be following the patient for his hip surgery. Objective - Vital Signs Vital signs: Vital Signs Temp 98.6 F 08/30/22 07:45 Pulse 82 08/30/22 07:45 Resp 16 08/30/22 08:20 BP 135/80 08/30/22 07:45 Pulse Ox 93 L 08/30/22 07:45 FiO2 Intake & Output 08/29/22 08/30/22 08/30/22 18:59 06:59 18:59 Output Total 300 Balance -300 Output: Urine 300 Other: Voiding Method Toilet Toilet Urinal Urinal # Voids 2 2 # Bowel Movements 1 - Labs CBC & Chem 7: 08/30/22 04:17 08/30/22 04:17 Labs: Abnormal Lab Results - Last 24 Hours (Table) 08/30/22 08/30/22 Range/Units 04:17 04:17 WBC 11.91 H (4.50-10.00) X 10*3/uL RBC 3.09 L (4.40-5.60) X 10*6/uL Hgb 8.8 L (13.0-17.0) g/dL Hct 27.4 L (39.6-50.0) % MPV 9.1 L (9.5-12.2) fL Immature Gran # 0.07 H (0.00-0.04) X 10*3/uL Neutrophils # 8.74 H (1.80-7.70) X 10*3/uL Monocytes # 1.20 H (0.20-1.00) X 10*3/uL Sodium 134 L (135-145) mmol/L Anion Gap 9.60 L (10.00-18.00) mmol/L BUN/Creatinine Ratio 20.18 H (12.00-20.00) Ratio Glucose 111 H (70-110) mg/dL Calcium 8.6 L (8.7-10.3) mg/dL
[2022-08-30 14:40] VITALS: BP 120/72; PULSE 74; RESP 18; TEMP 98.2
== END 2022-08-30 17:13 | DRG 470 ==
LOC: OR 05:42 → 4SSUR 10:10 → OR 08-30 07:44 → 4SSUR 08-30 07:44
PROVIDERS: ADMIT Orthopaedic Surgery; ATTEND Orthopaedic Surgery
PROC: 0SR901A Replacement of Right Hip Joint with Metal Synthetic Substitute, Uncemented, Open Approach (ICD-10-PCS; principal; 2022-08-27 07:45)
DX: M16.11 Unilateral primary osteoarthritis, right hip (principal); D62 Acute posthemorrhagic anemia; E87.1 Hypo-osmolality and hyponatremia; E78.5 Hyperlipidemia, unspecified; E87.5 Hyperkalemia; I12.9 Hypertensive chronic kidney disease with stage 1 through stage 4 chronic kidney disease, or unspecified chronic kidney disease; N18.30 Chronic kidney disease, stage 3 unspecified; Z79.899 Other long term (current) drug therapy; Z80.0 Family history of malignant neoplasm of digestive organs; Z80.1 Family history of malignant neoplasm of trachea, bronchus and lung
CPT/HCPCS: 36415; 64461; 73501; 80048; 85025; 85610; 86850; 86900; 86901; 88300

== ENCOUNTER → 2023-04-20 | Outpatient (CLI) | payer MEDICARE, BC ==
[2023-04-20 11:57] LABS: Basophils # (A) 0.03 X 10*3/uL (0.00-0.10); Basophils % (A) 0.5 %; Eosinophils # (A) 0.14 X 10*3/uL (0.04-0.35); Eosinophils % (A) 2.1 %; HCT 39.6 % (39.6-50.0); HGB 12.3 d/dL (13.0-17.0); Lymphocytes # (A) 1.62 X 10*3/uL (0.90-5.00); Lymphocytes % (A) 24.4 %; MCH 27.7 pg (27.0-32.0); MCHC 31.1 d/dL (32.0-37.0); MCV 89.2 FL (80.0-97.0); Mean Platelet Volume 9.7 FL (9.5-12.2); Monocytes # (A) 0.63 X 10*3/uL (0.20-1.00); Monocytes % (A) 9.5 %; NRBC Per 100 WBC 0 X 10*3/uL (0.00-0.01); Neutrophils # (A) 4.21 X 10*3/uL (1.80-7.70); Neutrophils % (A) 63.2 %; Platelet Count 345 X 10*3/uL (140-440); RBC 4.44 X 10*6/uL (4.40-5.60); RDW 14.3 % (11.5-14.5); WBC 6.65 X 10*3/uL (4.50-10.00)
[2023-04-20 12:25] LABS: ALT 15 U/L (10-49); AST 18 U/L (14-35); Albumin/Globulin Ratio 1.82 Ratio (1.60-3.17); Alkaline Phosphatase 133 U/L (41-126); BUN/Creat Ratio 21.55 Ratio (12.00-20.00); Blood Urea Nitrogen 23.7 mg/dL (9.0-27.0); Calcium 9.4 mg/dL (8.7-10.3); Carbon Dioxide 26.7 mmol/L (21.6-31.8); Chloride 104 mmol/L (96-109); Chol/HDL Ratio 2.83 Ratio; Creatine Kinase 106 U/L (35-257); Globulin 2.2 d/dL (1.6-3.3); Glucose 106 mg/dL (70-110); LDL Cholesterol,Calculated 61.1 mg/dL (0.0-131.0); Magnesium 2.4 mg/dL (1.5-2.4); Phosphorus 2.8 mg/dL (2.4-5.1); Potassium 4.5 mmol/L (3.5-5.5); Sodium 141 mmol/L (135-145); Total Bilirubin 0.4 mg/dL (0.3-1.2); Total Protein 6.2 d/dL (6.2-8.2); VLDL Calculation 18.46 mg/dL (5.00-40.00)
== END | disposition home or self-care (01) ==
LOC: LABWHC1 07:57
PROVIDERS: ATTEND Internal Medicine
DX: Z00.00 Encounter for general adult medical examination without abnormal findings (principal); I10 Essential (primary) hypertension; D64.9 Anemia, unspecified; N40.0 Benign prostatic hyperplasia without lower urinary tract symptoms; E87.8 Other disorders of electrolyte and fluid balance, not elsewhere classified; E78.5 Hyperlipidemia, unspecified; E03.9 Hypothyroidism, unspecified; E55.9 Vitamin D deficiency, unspecified
CPT/HCPCS: 36415; 80053; 80061; 82306; 82550; 83735; 84100; 84153; 84443; 85025; 86140

== ENCOUNTER → 2023-04-22 | Outpatient (CLI) | payer MEDICARE, BC | END | disposition home or self-care (01) | LOC: LABPRL 11:17 | PROVIDERS: ATTEND Internal Medicine | DX: Z00.00 Encounter for general adult medical examination without abnormal findings (principal); I10 Essential (primary) hypertension; D64.9 Anemia, unspecified; N40.0 Benign prostatic hyperplasia without lower urinary tract symptoms; E87.8 Other disorders of electrolyte and fluid balance, not elsewhere classified; E78.5 Hyperlipidemia, unspecified; E55.9 Vitamin D deficiency, unspecified; E03.9 Hypothyroidism, unspecified | CPT/HCPCS: 82272 ==

== ENCOUNTER → 2023-07-27 | Outpatient (CLI) | payer MEDICARE, BC ==
[2023-07-27 17:09] LABS: Basophils # (A) 0.05 X 10*3/uL (0.00-0.10); Basophils % (A) 0.7 %; Eosinophils # (A) 0.24 X 10*3/uL (0.04-0.35); Eosinophils % (A) 3.6 %; HCT 40.8 % (39.6-50.0); HGB 12.9 g/dL (13.0-17.0); Lymphocytes # (A) 1.81 X 10*3/uL (0.90-5.00); MCH 28.1 pg (27.0-32.0); MCHC 31.6 g/dL (32.0-37.0); MCV 88.9 FL (80.0-97.0); Mean Platelet Volume 9.9 FL (9.5-12.2); NRBC Per 100 WBC 0 X 10*3/uL (0.00-0.01); Neutrophils # (A) 3.99 X 10*3/uL (1.80-7.70); Neutrophils % (A) 59.6 %; Platelet Count 346 X 10*3/uL (140-440); RBC 4.59 X 10*6/uL (4.40-5.60); RDW 13.3 % (11.5-14.5)
[2023-07-27 17:23] LABS: % Iron Saturation 19.69 (15.00-50.00)
== END | disposition home or self-care (01) ==
LOC: LABWHC1 08:20
PROVIDERS: ATTEND Internal Medicine
DX: D64.9 Anemia, unspecified (principal)
CPT/HCPCS: 36415; 82728; 83540; 83550; 85025

== ENCOUNTER → 2024-02-01 | Outpatient (CLI) | payer MEDICARE, BC ==
[2024-02-01 14:33] LABS: Basophils # (A) 0.03 X 10*3/uL (0.00-0.10); Basophils % (A) 0.4 %; Eosinophils # (A) 0.12 X 10*3/uL (0.04-0.35); Eosinophils % (A) 1.7 %; HCT 39.7 % (39.6-50.0); HGB 12.6 g/dL (13.0-17.0); Lymphocytes # (A) 1.64 X 10*3/uL (0.90-5.00); MCH 29.1 pg (27.0-32.0); MCHC 31.7 g/dL (32.0-37.0); MCV 91.7 FL (80.0-97.0); Mean Platelet Volume 10.1 FL (9.5-12.2); Monocytes # (A) 0.66 X 10*3/uL (0.20-1.00); Monocytes % (A) 9.3 %; NRBC Per 100 WBC 0 X 10*3/uL (0.00-0.01); Neutrophils # (A) 4.66 X 10*3/uL (1.80-7.70); Neutrophils % (A) 65.5 %; Platelet Count 307 X 10*3/uL (140-440); RBC 4.33 X 10*6/uL (4.40-5.60); RDW 13.2 % (11.5-14.5); WBC 7.12 X 10*3/uL (4.50-10.00)
[2024-02-01 15:05] LABS: % Iron Saturation 21.13 (15.00-50.00)
== END | disposition home or self-care (01) ==
LOC: LABWHC1 08:17
PROVIDERS: ATTEND Internal Medicine
DX: D50.9 Iron deficiency anemia, unspecified (principal)
CPT/HCPCS: 36415; 82728; 83540; 83550; 85025

== ENCOUNTER → 2024-04-26 | Outpatient (CLI) | payer MEDICARE, BC | END | disposition home or self-care (01) | LOC: LABWHC1 13:24 | PROVIDERS: ATTEND Internal Medicine | DX: I10 Essential (primary) hypertension (principal); D64.9 Anemia, unspecified; E78.5 Hyperlipidemia, unspecified; E55.9 Vitamin D deficiency, unspecified; M81.0 Age-related osteoporosis without current pathological fracture; E87.8 Other disorders of electrolyte and fluid balance, not elsewhere classified; M10.9 Gout, unspecified; R80.9 Proteinuria, unspecified | CPT/HCPCS: 36415; 80053; 80061; 82272; 82306; 82550; 82570; 83735; 84100; 84153; 84156; 84443; 84550; 85025; 85652; 86140 ==

== ENCOUNTER → 2024-04-30 | Outpatient (CLI) | payer MEDICARE, BC | END | disposition home or self-care (01) | LOC: LABWHC1 07:56 | PROVIDERS: ATTEND Internal Medicine | DX: I10 Essential (primary) hypertension (principal); E78.5 Hyperlipidemia, unspecified; M10.9 Gout, unspecified; M81.0 Age-related osteoporosis without current pathological fracture; D64.9 Anemia, unspecified; E87.8 Other disorders of electrolyte and fluid balance, not elsewhere classified; E55.9 Vitamin D deficiency, unspecified; R80.9 Proteinuria, unspecified | CPT/HCPCS: 36415; 80053; 80061; 82306; 82550; 83735; 84100; 84153; 84443; 84550; 85025; 85652; 86140 ==

== ENCOUNTER → 2024-05-29 | Outpatient (CLI) | payer MEDICARE, BC ==
[2024-05-29 15:05] LABS: Basophils # (A) 0.02 X 10*3/uL (0.00-0.10); Basophils % (A) 0.3 %; Eosinophils # (A) 0.04 X 10*3/uL (0.04-0.35); Eosinophils % (A) 0.6 %; HCT 38.7 % (39.6-50.0); HGB 12.6 g/dL (13.0-17.0); Lymphocytes # (A) 1.23 X 10*3/uL (0.90-5.00); Lymphocytes % (A) 18.1 %; MCH 29.7 pg (27.0-32.0); MCHC 32.6 g/dL (32.0-37.0); MCV 91.3 FL (80.0-97.0); Mean Platelet Volume 9.8 FL (9.5-12.2); Monocytes # (A) 0.55 X 10*3/uL (0.20-1.00); Monocytes % (A) 8.1 %; NRBC Per 100 WBC 0 X 10*3/uL (0.00-0.01); Neutrophils # (A) 4.93 X 10*3/uL (1.80-7.70); Neutrophils % (A) 72.6 %; Platelet Count 346 X 10*3/uL (140-440); RBC 4.24 X 10*6/uL (4.40-5.60); RDW 13.2 % (11.5-14.5); WBC 6.79 X 10*3/uL (4.50-10.00)
[2024-05-29 16:14] LABS: % Iron Saturation 20.63 (15.00-50.00)
== END | disposition home or self-care (01) ==
LOC: LABWHC1 09:36
PROVIDERS: ATTEND Internal Medicine Gastroenterology
DX: D50.9 Iron deficiency anemia, unspecified (principal)
CPT/HCPCS: 36415; 82728; 83540; 83550; 85025

== ENCOUNTER 2024-07-18 09:00 | Day surgery (SDC) | payer MEDICARE, BC ==
[~2024-07-18 09:00] MED LIST changes: -ACETAMINOPHEN TAB 500 MG TAB PO PRN; -DEXAMETHASONE SOD PHOSPHATE 4 MG/ML 1 ML VIAL IV ONE; +LIDOCAINE 1% (10MG/ML) FOR IV START INTRADERMA PRN; -MELOXICAM 7.5 MG TAB PO PRN; -TRANEXAMIC ACID IN NACL,ISO-OS 1,000 MG in SALINE 1 100ML.BAG IVPB PRN
[2024-07-18] MEDS: IV FLUID CONTINUATION 1,000 ML IV ONE (09:44)
[2024-07-18 09:47] VITALS: TEMP 96.8
[2024-07-18] MEDS: LACTATED RINGERS 1,000 ML IV SCH (10:00)
[2024-07-18] MEDS ORDERED: PROPOFOL 10 MG/ML 20 ML VIAL IV ONE (10:53)
[2024-07-18] MEDS ORDERED: LIDOCAINE 1% INJ 10MG/ML (20 ML MDV) ONE (10:53)
--- NOTE | 2024-07-18 11:21 | P.PCN ---
Date of Procedure: 07/18/24 Procedure(s) Performed: Brief history: Patient is a pleasant 84-year-old white male scheduled for an elective upper endoscopy as well as colonoscopy as a part of evaluation of anemia and Hemoccult positive stool Procedure performed: Esophagogastroduodenoscopy with biopsy Colonoscopy with snare polypectomy Preoperative diagnosis: Anemia and Hemoccult positive stool Anesthesia: [facility] [place] Procedure: After informed consent was obtained from the patient was brought into the endoscopy unit and IV sedation was administered by anesthesia under continuous monitoring. Initially upper endoscopy was done. The Olympus GF 160 video endoscope was inserted inserted into the mouth and esophagus intubated without any difficulty and was gradually advanced into the stomach and duodenum and carefully examined. The bulb and second part of the duodenum appeared normal. Biopsies were done from the duodenum to evaluate for celiac disease. The scope was then withdrawn into the stomach adequately insufflated with air and upon careful examination the antrum had patchy areas of erythema consistent with gastritis and biopsies were done from this area. Mucosa of the body, cardia and fundus appeared normal. The scope was then withdrawn into the esophagus. Small hiatal hernia. The GE junction was located at 40 cm to the incisors. It appeared regular with no erythema erosions or ulcerations. Rest of the esophagus appeared normal. Patient tolerated the procedure well. At this time the patient continued to remain sedation. Initial digital rectal examination was normal. Olympus CF 160 video colonoscope was then inserted into the rectum and gradually advanced to the cecum without any difficulty. Careful examination was performed as the scope was gradually being withdrawn. The prep was excellent. The cecum appeared normal. The ascending colon there was a 1 cm broad-based polyp removed by snare polypectomy. In the hepatic flexure there was a 2 cm broad-based polyp removed by piecemeal snare polypectomy and complete polypectomy accomplished. Rest of the, ascending colon, transverse colon, de scending colon, sigmoid colon and rectum appeared normal. In the proximal rectum there was a 1.2 cm polyp removed by snare polypectomy. Retroflexion was performed in the rectum and grade 2 internal hemorrhoids were noted. Patient tolerated the procedure well. Impression: 1. Upper endoscopy revealed small hiatal hernia and mild antral gastritis 2. Colonoscopy revealed: 1 cm ascending colon polyp status post polypectomy 2 cm hepatic flexure polyp status post polypectomy 1.2 cm proximal rectal polyp status post polypectomy Small internal hemorrhoids Recommendations: Findings of this examination were discussed with the patient as well as his family. He was advised to follow-up with the biopsy results. Recommended repeat colonoscopy in 3 years based on his overall medical condition.
[2024-07-18 11:50] VITALS: BP 168/82; PULSE 64; RESP 16
== END 2024-07-18 12:10 | disposition home or self-care (01) ==
LOC: ORWHC2ENDO 09:00
PROVIDERS: ATTEND Internal Medicine Gastroenterology
DX: D12.2 Benign neoplasm of ascending colon (principal); D12.3 Benign neoplasm of transverse colon; D12.8 Benign neoplasm of rectum; K64.1 Second degree hemorrhoids; K29.50 Unspecified chronic gastritis without bleeding; B96.81 Helicobacter pylori [H. pylori] as the cause of diseases classified elsewhere; K31.A11 Gastric intestinal metaplasia without dysplasia, involving the antrum; K44.9 Diaphragmatic hernia without obstruction or gangrene; I10 Essential (primary) hypertension; E78.5 Hyperlipidemia, unspecified; D64.9 Anemia, unspecified; Z79.899 Other long term (current) drug therapy
CPT/HCPCS: 88305; 88342; 45385; 43239; J2003; J2704

== ENCOUNTER → 2024-09-04 | Outpatient (CLI) | payer MEDICARE, BC ==
[2024-09-05 01:43] LABS: Basophils # (A) 0.02 X 10*3/uL (0.00-0.10); Basophils % (A) 0.2 %; Eosinophils # (A) 0.03 X 10*3/uL (0.04-0.35); Eosinophils % (A) 0.3 %; HCT 38.5 % (39.6-50.0); HGB 12.6 g/dL (13.0-17.0); Lymphocytes # (A) 1.48 X 10*3/uL (0.90-5.00); Lymphocytes % (A) 15.4 %; MCH 29.7 pg (27.0-32.0); MCHC 32.7 g/dL (32.0-37.0); MCV 90.8 FL (80.0-97.0); Mean Platelet Volume 9.9 FL (9.5-12.2); Monocytes # (A) 0.71 X 10*3/uL (0.20-1.00); Monocytes % (A) 7.4 %; NRBC Per 100 WBC 0 X 10*3/uL (0.00-0.01); Neutrophils # (A) 7.33 X 10*3/uL (1.80-7.70); Neutrophils % (A) 76.4 %; Platelet Count 460 X 10*3/uL (140-440); RBC 4.24 X 10*6/uL (4.40-5.60); RDW 13.4 % (11.5-14.5)
[2024-09-05 02:15] LABS: % Iron Saturation 17.89 (15.00-50.00)
== END | disposition home or self-care (01) ==
LOC: LABWHC1 15:54
PROVIDERS: ATTEND Internal Medicine Gastroenterology
DX: D50.9 Iron deficiency anemia, unspecified (principal)
CPT/HCPCS: 36415; 82728; 83540; 83550; 85025

== ENCOUNTER → 2025-01-15 | Outpatient (CLI) | payer MEDICARE, BC ==
[2025-01-15 14:42] LABS: Basophils # (A) 0.03 X 10*3/uL (0.00-0.10); Basophils % (A) 0.4 %; Eosinophils # (A) 0.11 X 10*3/uL (0.04-0.35); Eosinophils % (A) 1.6 %; HCT 39.9 % (39.6-50.0); HGB 12.7 g/dL (13.0-17.0); Lymphocytes # (A) 1.96 X 10*3/uL (0.90-5.00); MCH 29.1 pg (27.0-32.0); MCHC 31.8 g/dL (32.0-37.0); MCV 91.3 FL (80.0-97.0); Mean Platelet Volume 9.7 FL (9.5-12.2); Monocytes # (A) 0.72 X 10*3/uL (0.20-1.00); Monocytes % (A) 10.7 %; NRBC Per 100 WBC 0 X 10*3/uL (0.00-0.01); Neutrophils # (A) 3.92 X 10*3/uL (1.80-7.70); Platelet Count 329 X 10*3/uL (140-440); RBC 4.37 X 10*6/uL (4.40-5.60); RDW 12.8 % (11.5-14.5); WBC 6.76 X 10*3/uL (4.50-10.00)
== END | disposition home or self-care (01) ==
LOC: LABWHC1 08:23
PROVIDERS: ATTEND Nurse Practitioner Family
DX: D50.9 Iron deficiency anemia, unspecified (principal)
CPT/HCPCS: 36415; 85025